=== PATIENT | female | born 1940 | race Caucasian/White ===

== ENCOUNTER 2016-03-14 08:13 | Inpatient (IN) | payer OTHER ==
[2016-03-14] VITALS (8 sets, daily range): BP systolic 103–180; BP diastolic 61–86; PULSE 60–78; TEMP 36.4–36.6; O2SAT 96–98; Ht 152.4 cm; Wt 46.6 kg
[~2016-03-14] VITALS: Ht 152.4 cm; Wt 46.6 kg
[~2016-03-14 08:13] MED LIST: ASPI81TA57 PO; CHOL100027 PO; CLOP1TAB15 PO; DILT-113 PO; ESZO1TAB16 PO; ISOS30TA3 PO; NTRGSL/4 UT; PRAV20TA PO; RAMI5CAP PO
[2016-03-14] MEDS ORDERED: ASPI81TA28 PO (08:26)
[2016-03-14] MEDS ORDERED: ALBUT/IPRATROP 3MG/0.5MG NEB 3 ML VIAL INH STA (08:40)
[2016-03-14 09:06] LABS: VEN BLD GAS O2 SATURATION 72.7 %; VEN BLOOD GAS BASE EXCESS 3.6 mmol/L
[2016-03-14 09:14] LABS: BASO % 0.1 %; BASO ABS # 0.01 K/uL (0-0.2); COMPLETE YES; EOS % 0.1 %; IG% 0.7 %; LYMPH % 16.3 %; LYMPH ABS # 2.07 K/uL (1.2-3.4); MEAN CELL VOLUME 89.9 fL (80-100); MEAN CORPUSCULAR HGB CONC 33.4 g/dl (32-36); MEAN PLATELET VOLUME 10.4 fL (7.4-10.4); MONO % 6.8 %; PLATELET COUNT 321 K/uL (130-400); RED BLOOD COUNT 4.56 M/uL (4.2-5.4); WHITE BLOOD COUNT 12.69 K/uL (4.8-10.8)
[2016-03-14 09:28] LABS: PARTIAL THROMBOPLASTIN RATIO 0.9; PROTHROMBIN TIME (PATIENT) 10.3 SECONDS (9.0-12.0)
[2016-03-14] MEDS ORDERED: LORAZEPAM 2 MG/ML 1 ML VIAL IV STA (09:28)
[2016-03-14 09:35] LABS: BUN/CREATININE RATIO 33.7 (10-20); CALCIUM 8.7 mg/dl (8.5-10.1); CREATININE 0.86 mg/dl (0.60-1.20); POTASSIUM 3.6 mmol/L (3.5-5.1)
[2016-03-14] MEDS ORDERED: OPTIRAY 320 IV PRN (09:45)
[2016-03-14 09:47] LABS: ALB/GLOB RATIO 0.7 (0.9-2)
[2016-03-14 10:59] LABS: URINE APPEARANCE CLEAR (CLEAR); URINE BILIRUBIN NEG (NEG); URINE COLOR YELLOW; URINE NITRITE NEG (NEG); URINE PH 7.5 (4.5-7.5); URINE SPECIFIC GRAVITY 1.009 (1.000-1.030); UROBILINOGEN NEG (NEG)
[2016-03-14] MEDS ORDERED: SYMIN160 INH (10:59)
[2016-03-14] MEDS ORDERED: CARV12.52 PO (10:59)
[2016-03-14] MEDS ORDERED: ATOR10TA88 PO (10:59)
[2016-03-14] MEDS ORDERED: SPIR25TA PO (10:59)
[2016-03-14] MEDS ORDERED: PANT40TA PO (10:59)
[2016-03-14 11:08] LABS: MANUAL MICROSCOPIC REQUIRED? NO; REVIEW REQ? NO; SULFASALICYLIC ACID POS (NEG)
--- NOTE | 2016-03-14 11:31 | DIAGNOSTIC IMAGING REPORT ---
HEAD CT NONCONTRAST CT DOSE: HISTORY: Dizziness. TECHNIQUE: Multiaxial CT images of the head were performed without the use of intravenous contrast. Automated exposure control was utilized for this study. Comparison: None. Findings: The paranasal sinuses and mastoid air cells are clear. The calvarium and skull base are intact. There is no mass, hematoma, midline shift, acute infarct. White matter hypodensity is nonspecific but suggestive of microvascular ischemic change. The ventricles and sulci are within normal limits for age. Old infarct within the left basal ganglia. Impression: No acute intracranial abnormality. Old left basal ganglia infarct. Electronically signed by: Rodney Rankin M.D. 03/14/2016 11:29 AM Dictated Date/Time: 03/14/2016 11:24 AM
--- NOTE | 2016-03-14 11:34 | DIAGNOSTIC IMAGING REPORT ---
CHEST AND ABDOMEN 2 VIEWS HISTORY: Short of breath. Generalized abdominal pain. COMPARISON: Chest 06/10/2012. FINDINGS: The heart is borderline enlarged. There is diffuse interstitial and vascular thickening consistent with mild pulmonary edema. No pleural effusions. No pneumothorax. Contrast within the renal collecting systems and bladder due to the recent CT examination. No pneumoperitoneum. No pneumatosis. Surgical clips within the right side of the abdomen. Vascular calcifications are noted. There is a right common iliac artery stent. The bowel gas pattern is unremarkable. No evidence for bowel obstruction. Punctate calcification within the right deep pelvis favors a phlebolith. There is a small focal airspace opacity within the right upper lobe. IMPRESSION: 1. Progression of the interstitial thickening consistent with mild pulmonary edema. 2. Unremarkable bowel gas pattern. No evidence for bowel obstruction. 3. Small focal airspace opacity within the right upper lobe. This could represent a component of the pulmonary edema or developing pneumonia. Recommend follow-up to complete resolution. Electronically signed by: Rodney Rankin M.D. 03/14/2016 11:32 AM Dictated Date/Time: 03/14/2016 11:30 AM
--- NOTE | 2016-03-14 11:46 | DIAGNOSTIC IMAGING REPORT ---
CHEST CTA for PULMONARY ARTERIES CT DOSE: 757.31 mGy.cm HISTORY: Atypical chest pain. Short of breath. TECHNIQUE: Multiaxial CT images of the chest were performed following the intravenous administration of contrast to evaluate the pulmonary arteries. Maximal intensity projection images were also obtained. COMPARISON STUDY: Chest and abdominal series 03/14/2016. FINDINGS: There is a partially visualized 4 cm infrarenal abdominal aortic aneurysm. No evidence for dissection within the thoracic aorta. Concentric hypertrophy of the left ventricle with mild cardiomegaly. There are trace bilateral pleural effusions. Retrograde flow of contrast into the hepatic veins. Mild fullness within the right left renal collecting system without bertha hydronephrosis. Cholecystectomy. The visualized liver, spleen, and adrenal glands are unremarkable. No hilar lymphadenopathy. A single enlarged right peritracheal lymph node measuring 1.4 cm. Mild diffuse body wall edema. Trace mucoid material within the mainstem bronchus. No pneumothorax. Mild emphysema. Interlobular septal thickening and peribronchial thickening. This favors mild interstitial pulmonary edema. Faint groundglass densities at the lung bases. Focal consolidation seen within the right upper lobe posteriorly which measures 2 cm. There is also a focal nodular component medial to this surrounding a pulmonary artery. This measures 1.5 x 0.9 cm seen on image 92. Small subpleural nodule along the right major fissure. There is a 1 cm irregular density within the right upper lobe anteriorly on image 105. Small focal area of consolidation within the lingula posteriorly abutting the major fissure on image 70. No evidence for pulmonary embolus. IMPRESSION: 1. No evidence for pulmonary embolus. 2. Diffuse interstitial thickening, mild cardiomegaly, and trace bilateral pleural effusions. This is consistent with mild interstitial pulmonary edema. 3. A 2 cm focal airspace opacity within the right upper lobe. Medial to this airspace opacity there is a 1.5 x 0.9 cm nodular area of thickening which surrounds a patent pulmonary artery. These are nonspecific but may represent a focal pneumonia or component of the pulmonary edema. However, one to [address] follow is recommended to exclude the possibility of a pulmonary neoplasm. 4. Additional groundglass densities at the lung bases favor component of the pulmonary edema. 5. Partially visualized 4 cm infrarenal abdominal aortic aneurysm. 6. A 1 cm irregular density within the right lung apex anteriorly. This may represent scarring. However, this also bears watching on future examinations. 7. Additional findings described above.. Electronically signed by: Rodney Rankin M.D. 03/14/2016 11:45 AM Dictated Date/Time: 03/14/2016 11:33 AM
[2016-03-14] MEDS ORDERED: HydrALAZINE HCL 20 MG/ML VIAL IV. STA (12:24)
[2016-03-14] MEDS ORDERED: FURO20TA PO (12:43)
[2016-03-14] MEDS ORDERED: MAGNESIUM HYDROXIDE SUSP 30 ML UDC PO PRN (12:45)
[2016-03-14] MEDS ORDERED: NITROGLYCERIN 0.4 MG SL PER TAB CHARGE SL PRN (12:45)
[2016-03-14] MEDS ORDERED: ONDANSETRON INJ 2 MG/ML 2 ML VIAL IV PRN (12:45)
[2016-03-14] MEDS ORDERED: ACETAMINOPHEN 325 MG TAB PO PRN (12:45)
[2016-03-14] MEDS ORDERED: ALUMINUM/MAGNESIUM/SIMETH (MAALOX MAX) 30 ML UDC PO PRN (12:45)
[2016-03-14] MEDS ORDERED: NITROGLYCERIN 0.4 MG SL PER TAB CHARGE UT SCH (12:45)
[2016-03-14] MEDS ORDERED: FUROSEMIDE 40 MG/4 ML VIAL IV STA (13:13)
--- NOTE | 2016-03-14 13:15 | History and Physical ---
History & Physical Date & Time of Service: Mar 14, 2016 at 12:55 Chief Complaint: SOB Primary Care Physician: Neftaly Cain M.D. History of Present Illness Source: patient, family, hospital records Patient seen and examined. 75 year old female with PMHx of HTN, CAD, PVP, H/O CVA and tobacco abuse presents to the ED complaining of SOB since last night. Patient reports she has had a URI for about 2 weeks, she has been treated with a Zpak, prednisone and nebulizer and thought she was getting better but last night she felt SOB even at rest. She reports associated cough with thick white sputum production. She reports PND and states she has been sleeping with an extra pillow. She also states she has had some diarrhea about 2 episodes per day. She states she has had urinary frequency for about a year despite stopping her Lasix. She denies fever, chills, chest pain, palpitations, nausea, vomiting , dysuria, calf pain and edema. She reports she hasn't been eating well for the past year. She reports she has had weight loss over the past year. She reports she is still smoking at least a half a pack a day. In the ED patient was HTN with SBP >200, she had not taken her morning meds, she required 4L oxygen, CT chest was negative for PE, but showed possible PNA and lung nodule. LFTs are elevated. Troponin is mildly elevated. BNP is 8K. She received Duonebs and Ativan. She is resting comfortably. She will be admitted for further workup and treatment. Past Medical/Surgical History Medical Problems: (1) AAA (abdominal aortic aneurysm) Status: Chronic (2) CAD (coronary artery disease) Status: Chronic (3) CVA (cerebral vascular accident) Status: Chronic (4) HLD (hyperlipidemia) Status: Chronic (5) Hypertension Status: Chronic (6) PVD (peripheral vascular disease) Status: Chronic (7) Tobacco abuse Status: Chronic Surgical Problems: (1) H/O: hysterectomy Status: Chronic (2) History of appendectomy Status: Chronic (3) History of cholecystectomy Status: Chronic Social History Smoking Status: Current Every Day Smoker Alcohol Use: socially Marital Status: in relationship Housing status: lives with family Occupational Status: retired Allergies Coded Allergies: Acetaminophen (Verified Allergy, Severe, SHORTNESS OF BREATH, 03/14/16) " FELT LIKE MY CHEST WAS BEING CRUSHED Cyclobenzaprine (Verified Allergy, Severe, ANAPHYLAXIS, 03/14/16) mY TONGUE SWELLS Morphine (Verified Allergy, Severe, ANAPHYLAXIS, 03/14/16) " I ALMOST " Oxycodone (Verified Allergy, Severe, SHORTNESS OF BREATH, 03/14/16) " FELT LIKE MY CHEST WAS BEING CRUSHED Uncoded Allergies: CODIENE (Allergy, Severe, ANAPHYLAXIS, 06/10/12) Home Medications Scheduled Aspirin (Aspirin Ec), 81 MG PO DAILY Atorvastatin (Lipitor), 10 MG PO DAILY Budesonide/Formoterol Fumarate (Symbicort 160/4.5 Inhaler ), 2 PUFFS INH BID Carvedilol (Coreg), 12.5 MG PO BID Cholecalciferol (Vitamin D 1000 Unit), 1,000 INTER.UNIT PO DAILY Doxycycline Hyclate (Doxycycline Hyclate), 100 MG PO BID Furosemide (Lasix), Unknown Dose PO DAILY Furosemide (Lasix), 20 MG PO WK Isosorbide Mononitrate Ext Rel (Imdur Ext Rel), 30 MG PO QAM Losartan Potassium (Losartan Potassium), 25 MG PO QAM Nitroglycerin (Nitrostat), 0.4 MG UT PRN Pantoprazole (Protonix), 40 MG PO DAILY Spironolactone (Aldactone), 25 MG PO DAILY [Boost Plus Vanilla], 1 CAN PO BID17 Review of Systems See above for pertinent positives & negatives. A total of 10 systems reviewed and were otherwise negative. Physical Exam Vital Signs Date Time Temp Pulse Resp B/P Pulse Ox O2 Delivery O2 Flow Rate FiO2 03/14/16 12:27 65 16 184/97 98 Room Air 03/14/16 12:25 64 03/14/16 09:49 76 14 206/106 97 Nasal Cannula 4.0 03/14/16 09:18 94 Nasal Cannula 4.0 03/14/16 08:24 84 03/14/16 08:22 94 Room Air 03/14/16 08:22 91 22 224/128 94 Room Air General Appearance: + pertinent finding (WD/WN 75 year old female lying in bed in NAD with family at bedside ) Head: normocephalic, atraumatic Eyes: PERRL, EOMI, sclerae normal ENT: hearing grossly normal, pharynx normal Neck: supple, no JVD Respiratory/Chest: chest non-tender, no respiratory distress, no accessory muscle use, + decreased breath sounds Cardiovascular: regular rate, rhythm, no edema, no gallop, no JVD, no murmur, normal peripheral pulses Abdomen/GI: normal bowel sounds, soft, + tenderness (LLQ), + mass (small flat hard area approximately 2 cm in size in LLQ, painful to palpation ) Back: normal inspection, no muscle spasm Extremities/Musculoskelatal: no calf tenderness, normal capillary refill, no pedal edema Neurologic/Psych: alert, oriented x 3, + pertinent finding (no motor or sensory deficits noted on gross exam ) Skin: normal color, warm/dry, no rash Lymphatic: no adenopathy Diagnostics Laboratory Results Results Past 24 Hours Test 03/14/16 08:50 03/14/16 09:10 03/14/16 09:45 Range/Units White Blood Count 12.69 4.8-10.8 K/uL Red Blood Count 4.56 4.2-5.4 M/uL Hemoglobin 13.7 12.0-16.0 g/dL Hematocrit 41.0 37-47 % Mean Corpuscular Volume 89.9 80-100 fL Mean Corpuscular Hemoglobin 30.0 25-34 pg Mean Corpuscular Hemoglobin Concent 33.4 32-36 g/dl Platelet Count 321 130-400 K/uL Mean Platelet Volume 10.4 7.4-10.4 fL Neutrophils (%) (Auto) 76.0 % Lymphocytes (%) (Auto) 16.3 % Monocytes (%) (Auto) 6.8 % Eosinophils (%) (Auto) 0.1 % Basophils (%) (Auto) 0.1 % Neutrophils # (Auto) 9.65 1.4-6.5 K/uL Lymphocytes # (Auto) 2.07 1.2-3.4 K/uL Monocytes # (Auto) 0.86 0.11-0.59 K/uL Eosinophils # (Auto) 0.01 0-0.5 K/uL Basophils # (Auto) 0.01 0-0.2 K/uL RDW Standard Deviation 42.1 36.4-46.3 fL RDW Coefficient of Variation 12.9 11.5-14.5 % Immature Granulocyte % (Auto) 0.7 % Immature Granulocyte # (Auto) 0.09 0.00-0.02 K/uL Prothrombin Time 10.3 9.0-12.0 SECONDS Prothromb Time International Ratio 1.0 0.9-1.1 Activated Partial Thromboplast Time 23.2 21.0-31.0 SECONDS Partial Thromboplastin Ratio 0.9 D-Dimer 4190 0-500 ug/L FEU Venous Blood pH 7.41 7.36-7.41 Venous Blood Partial Pressure CO2 46 38.0-50.0 mmHg Venous Blood Partial Pressure O2 39 mmHg Venous Blood HCO3 29 mmol/L Venous Blood Oxygen Saturation 72.7 % Venous Blood Base Excess 3.6 mmol/L Sodium Level 143 136-145 mmol/L Potassium Level 3.6 3.5-5.1 mmol/L Chloride Level 107 98-107 mmol/L Carbon Dioxide Level 26 21-32 mmol/L Anion Gap 10.0 3-11 mmol/L Blood Urea Nitrogen 29 7-18 mg/dl Creatinine 0.86 0.60-1.20 mg/dl Est Creatinine Clear Calc Drug Dose 41.8 ml/min Estimated GFR () 77.7 Estimated GFR (Non- 67.0 BUN/Creatinine Ratio 33.7 10-20 Random Glucose 86 70-99 mg/dl Calcium Level 8.7 8.5-10.1 mg/dl Total Bilirubin 0.2 0.2-1 mg/dl Aspartate Amino Transf (AST/SGOT) 130 15-37 U/L Alanine Aminotransferase (ALT/SGPT) 91 12-78 U/L Alkaline Phosphatase 172 45-117 U/L Troponin I 0.052 0-0.045 ng/ml Pro-B-Type Natriuretic Peptide 8757 0-900 pg/ml Total Protein 7.3 6.4-8.2 gm/dl Albumin 3.0 3.4-5.0 gm/dl Globulin 4.3 2.5-4.0 gm/dl Albumin/Globulin Ratio 0.7 0.9-2 Influenza Type A Antigen Neg for Influ A NEG Influenza Type B Antigen Neg for Influ B NEG Urine Color YELLOW Urine Appearance CLEAR CLEAR Urine pH 7.5 4.5-7.5 Urine Specific Enders 1.009 1.000-1.030 Urine Protein TRACE NEG Urine Glucose (UA) NEG NEG Urine Ketones NEG NEG Urine Occult Blood NEG NEG Urine Nitrite NEG NEG Urine Bilirubin NEG NEG Urine Urobilinogen NEG NEG Urine Leukocyte Esterase NEG NEG Urine WBC (Auto) 1-5 0-5 /hpf Urine RBC (Auto) 0-4 0-4 /hpf Urine Hyaline Casts (Auto) 0 0-5 /lpf Urine Epithelial Cells (Auto) 10-20 0-5 /lpf Urine Bacteria (Auto) NEG NEG Diagnostic Radiology CXR/KUB Per radiologist read: IMPRESSION: 1. Progression of the interstitial thickening consistent with mild pulmonary edema. 2. Unremarkable bowel gas pattern. No evidence for bowel obstruction. 3. Small focal airspace opacity within the right upper lobe. This could represent a component of the pulmonary edema or developing pneumonia. Recommend follow-up to complete resolution. CT HEAD Per radiologist read: Impression: No acute intracranial abnormality. Old left basal ganglia infarct. CTA CHEST Per radiologist read: IMPRESSION: 1. No evidence for pulmonary embolus. 2. Diffuse interstitial thickening, mild cardiomegaly, and trace bilateral pleural effusions. This is consistent with mild interstitial pulmonary edema. 3. A 2 cm focal airspace opacity within the right upper lobe. Medial to this airspace opacity there is a 1.5 x 0.9 cm nodular area of thickening which surrounds a patent pulmonary artery. These are nonspecific but may represent a focal pneumonia or component of the pulmonary edema. However, one to [address] follow is recommended to exclude the possibility of a pulmonary neoplasm. 4. Additional groundglass densities at the lung bases favor component of the pulmonary edema. 5. Partially visualized 4 cm infrarenal abdominal aortic aneurysm. 6. A 1 cm irregular density within the right lung apex anteriorly. This may represent scarring. However, this also bears watching on future examinations. 7. Additional findings described above.. EKG NSR 92 BPM, LBBB, QTc 487, no significant change when compared to OSH EKG Impression Assessment and Plan 75 year old female in town to visit family reports to the ED complaining of worsening SOB since last night SHORTNESS OF BREATH -Admit to tele -Differentia diagnosis to include, CHF, PNA, bronchitis, ACS -CTA negative for PE, shows possible consolidation -Empirically treat with Rocephin and Doxycycline for possible pneumonia -Scheduled nebs -For possible CHF - IV Lasix 40mg x 1 dose -Check Echo -Serial Kevin to r/o ACS -Cardiology consult placed ELEVATED TROPONIN -? troponin leak related to hypertensive urgency -serial Kevin, EKGs -monitor in tele ABDOMINAL PAIN/TRANSAMINITIS/WEIGHT LOSS -? cause -Check CT A/P -check Liver US -hepatitis panel pending -GI consult placed -repeat LFTs in AM LEUKOCYTOSIS -? cause URI versus PNA -check blood cultures -Abx as above -check CBC daily HYPERTENSIVE URGENCY -SBP >200, CT head negative - improved to the 180s after morning meds -? cause stress, infection, and other etiologies -Continue Spirolactone, Imdur, BB -add hydralazine prn -monitor in tele LUNG NODULE -incidental finding of CT chest -is current smoker with history of recent weight loss, decreased appetite -Pulmonology consult placed -will need repeat CT chest as outpatient AAA -4cm intrarenal AAA -US pending CAD -continue ASA, BB, Imdur -hold Statin for elevated LFTs -monitor in tele -serial Kevin PVD -s/p stent -continue Aspirin HLD -hold statin for elevated LFTs H/O CVA -continue ASA TOBACCO ABUSE -Cessation counseling given DVT PROPHYLAXIS: Heparin CODE STATUS: FULL CODE DISPO:In my clinical judgment this beneficiary meets acute admission criteria, established by [facility], that includes being hospitalized through two midnights. Patient seen in collaboration with Dr. Gibbs ATTENDING ADDENDUM : pt seen and examined , in agreement with above H&P 75 yo F with past medical hx of HTN , CAD , hx of CVA , hx GI bleed , ongoing tobacco abuse presented with ED due worsening of SOB pt is out of town , visiting daughter in status college had recent URI treated with Z -pack , INH , prednisone taper developed progressive SOB , SANDOVAL , orthopnea found to be in Hypertensive urgency in ED ; SBP > 200 CT chest negative for PE , possible pneumonia /lung nodule P/E: gen ; anxious , no apparent distress HEENT : sclera non icteric , PERRLA/EOMI HT: regular S1/S2 Lungs: diminished , + rales at base abdomen; soft, left lower quad tenderness Ext ; trace bilat lower ext edema Neuro: no focal deficit A/P : SOB: possible decompensated CHF -diastolic dysfunction ? ordered for ECHO eval Lasix X1 dose empiric abx for pneumonia pulmonology consulted for lung nodule smoking cessation counselling provided HYPERTENSIVE URGENCY : ordered for IV Hydralazine resume out pt meds ( pt missed her morning meds ) ECHO ordered monitor in tele Cardiology eval requested VTE Prophylaxis VTE Risk Assessment Done? Y/N: Yes Risk Level: Moderate
[2016-03-14] MEDS ORDERED: POLYETHYLENE (MIRALAX) 17 GM PACK PO PRN (14:00)
[2016-03-14] MEDS ORDERED: HydrALAZINE HCL 20 MG/ML VIAL IV. PRN (14:00)
--- NOTE | 2016-03-14 14:58 | DIAGNOSTIC IMAGING REPORT ---
ABDOMEN AND PELVIS CT WITHOUT CONTRAST CT DOSE: 228.63 mGy.cm HISTORY: Pain abdominal pain , wt loss TECHNIQUE: Multiaxial CT images of the abdomen and pelvis were performed without contrast. COMPARISON STUDY: None. FINDINGS: Mild bibasilar atelectasis. Trace pleural fluid both lung bases. Aneurysmal dilatation of abdominal aorta with partial intraluminal thrombus formation. Maximum dimension 3.8 cm. Small chronic calcified dissection inferior aspect abdominal aorta. Unremarkable liver spleen and pancreas. Multiple bilateral renal calcifications as well as vascular calcifications. Nonobstructive bowel pattern. Normal appendix. No free fluid within the cul-de-sac cul-de-sac. Bladder is midline. Considerable atelectatic change abdominal arterial vasculature. Degenerative changes lumbar spine. Increased trabecular pattern right hemipelvis and right iliac wing raising the possibility of patchy joint change. No evidence for an acute compression deformity. IMPRESSION: 1. 3.8 cm partially calcified aneurysm of abdominal aorta. 2. Nonobstructive bowel pattern. 3. Bilateral nonobstructing renal calcifications. 4. Small bibasilar parenchymal infiltrative and/or atelectatic changes with minimal basilar pleural effusion Electronically signed by: Jesus Palencia M.D. 03/14/2016 2:57 PM Dictated Date/Time: 03/14/2016 2:51 PM
[2016-03-14] MEDS ORDERED: LEVALBUTEROL/IPRATROPIUM NEB INH SCH (15:00)
--- NOTE | 2016-03-14 15:09 | EMERGENCY ROOM VISIT NOTE ---
History Report prepared by Edis: Brian Johns Under the Supervision of: Dr. Gene Abrams D.O. First contact with patient: 08:29 Chief Complaint: RESPIRATORY DISTRESS Stated Complaint: SOB History of Present Illness The patient is a 75 year old female who presents to the Emergency Room with complaints of constant shortness of breath starting last night. The patient additionally complains of nausea, coughing up white phlegm, rhinorrhea, and improving abdominal pain. The patient denies any fevers, sore throat, congestions or ear pain. The patient states that five days ago she was in the hospital for similar symptoms. The patient additionally noted that she took DayQuil which she is not supposed to do. The patient denies any COPD, asthma, and she states that she is a former smoker. She states that her last bowel movement was yesterday. She states that she has a history of hypertension and a surgical history of an appendectomy, cholecystectomy, and a hysterectomy. She denies being on oxygen at home. Pt denies headache, change in vision, chest pain , vomiting, diarrhea, pain with urination, and melena. She missed a history of hypertension and probably elevated cholesterol. She also admits to previous cath with an occlusion and collaterals present. Source of History: patient Onset: last night Position: other (global) Quality: other (shortness of breath) Timing: constant Associated Symptoms: + abdominal pain, + cough, + nausea, No fevers, No headache Review of Systems See HPI for pertinent positives & negatives. A total of 10 systems reviewed and were otherwise negative. Past Medical & Surgical Medical Problems: (1) Hypertension (2) SOB (shortness of breath) Surgical Problems: (1) H/O: hysterectomy (2) History of appendectomy (3) Hx of cholecystectomy Social History Smoking Status: Current Every Day Smoker Alcohol Use: occasionally Marital Status: in relationship Occupation Status: retired Current/Historical Medications Scheduled Aspirin (Aspirin Ec), 81 MG PO DAILY Atorvastatin (Lipitor), 10 MG PO DAILY Budesonide/Formoterol Fumarate (Symbicort 160/4.5 Inhaler ), 2 PUFFS INH BID Carvedilol (Coreg), 12.5 MG PO BID Cholecalciferol (Vitamin D 1000 Unit), 1,000 INTER.UNIT PO DAILY Furosemide (Lasix), Unknown Dose PO DAILY Isosorbide Mononitrate Ext Rel (Imdur Ext Rel), 30 MG PO QAM Nitroglycerin (Nitrostat), 0.4 MG UT PRN Pantoprazole (Protonix), 40 MG PO DAILY Spironolactone (Aldactone), 25 MG PO DAILY Allergies Coded Allergies: Acetaminophen (Verified Allergy, Severe, SHORTNESS OF BREATH, 03/14/16) " FELT LIKE MY CHEST WAS BEING CRUSHED Cyclobenzaprine (Verified Allergy, Severe, ANAPHYLAXIS, 03/14/16) mY TONGUE SWELLS Morphine (Verified Allergy, Severe, ANAPHYLAXIS, 03/14/16) " I ALMOST " Oxycodone (Verified Allergy, Severe, SHORTNESS OF BREATH, 03/14/16) " FELT LIKE MY CHEST WAS BEING CRUSHED Uncoded Allergies: CODIENE (Allergy, Severe, ANAPHYLAXIS, 06/10/12) Physical Exam Vital Signs Date Time Temp Pulse Resp B/P Pulse Ox O2 Delivery O2 Flow Rate FiO2 03/14/16 13:30 98 Nasal Cannula 2.0 03/14/16 13:30 69 14 184/100 98 Room Air 03/14/16 12:27 65 16 184/97 98 Room Air 03/14/16 12:25 64 03/14/16 09:49 76 14 206/106 97 Nasal Cannula 4.0 03/14/16 09:18 94 Nasal Cannula 4.0 03/14/16 08:24 84 03/14/16 08:22 94 Room Air 03/14/16 08:22 91 22 224/128 94 Room Air Physical Exam GENERAL: sitting up in bed, anxious, disheveled, non-toxic EYE EXAM: normal conjunctiva, PERRL and EOM's grossly intact OROPHARYNX: no exudate, no erythema, lips, buccal mucosa, and tongue normal and mucous membranes are moist NECK: No JVD. supple, no nuchal rigidity, no adenopathy, non-tender LUNGS: Scant wheezing bilaterally. Normal chest wall mechanics HEART: no murmurs, S1 normal and S2 normal ABDOMEN: abdomen soft, non-tender, normo-active bowel sounds, no masses, no rebound or guarding. BACK: Back is symmetrical on inspection and there is no deformity, no midline tenderness, no CVA tenderness. SKIN: no rashes and no bruising UPPER EXTREMITIES: upper extremities are grossly normal. LOWER EXTREMITIES: Calves equal bilaterally. No pitting edema. NEURO EXAM: Normal sensorium, cranial nerves II-XII grossly intact, normal speech, no gross weakness of arms, no gross weakness of legs. No drift. Finger to nose intact. Medical Decision & Procedures ER Provider Diagnostic Interpretation: Xray results per the radiologist and my interpretation. Other results have been interpreted by the radiologist and reviewed by me. CHEST AND ABDOMEN 2 VIEWS HISTORY: Short of breath. Generalized abdominal pain. COMPARISON: Chest 06/10/2012. FINDINGS: The heart is borderline enlarged. There is diffuse interstitial and vascular thickening consistent with mild pulmonary edema. No pleural effusions. No pneumothorax. Contrast within the renal collecting systems and bladder due to the recent CT examination. No pneumoperitoneum. No pneumatosis. Surgical clips within the right side of the abdomen. Vascular calcifications are noted. There is a right common iliac artery stent. The bowel gas pattern is unremarkable. No evidence for bowel obstruction. Punctate calcification within the right deep pelvis favors a phlebolith. There is a small focal airspace opacity within the right upper lobe. IMPRESSION: 1. Progression of the interstitial thickening consistent with mild pulmonary edema. 2. Unremarkable bowel gas pattern. No evidence for bowel obstruction. 3. Small focal airspace opacity within the right upper lobe. This could represent a component of the pulmonary edema or developing pneumonia. Recommend follow-up to complete resolution. Electronically signed by: Rodney Rankin M.D. 03/14/2016 11:32 AM Dictated Date/Time: 03/14/2016 11:[address] CT DOSE: HISTORY: Dizziness. TECHNIQUE: Multiaxial CT images of the head were performed without the use of intravenous contrast. Automated exposure control was utilized for this study. Comparison: None. Findings: The paranasal sinuses and mastoid air cells are clear. The calvarium and skull base are intact. There is no mass, hematoma, midline shift, acute infarct. White matter hypodensity is nonspecific but suggestive of microvascular ischemic change. The ventricles and sulci are within normal limits for age. Old infarct within the left basal ganglia. Impression: No acute intracranial abnormality. Old left basal ganglia infarct. Electronically signed by: Rodney Rankin M.D. 03/14/2016 11:29 AM Dictated Date/Time: 03/14/2016 11:24 AM CHEST CTA for PULMONARY ARTERIES CT DOSE: 757.31 mGy.cm HISTORY: Atypical chest pain. Short of breath. TECHNIQUE: Multiaxial CT images of the chest were performed following the intravenous administration of contrast to evaluate the pulmonary arteries. Maximal intensity projection images were also obtained. COMPARISON STUDY: Chest and abdominal series 03/14/2016. FINDINGS: There is a partially visualized 4 cm infrarenal abdominal aortic aneurysm. No evidence for dissection within the thoracic aorta. Concentric hypertrophy of the left ventricle with mild cardiomegaly. There are trace bilateral pleural effusions. Retrograde flow of contrast into the hepatic veins. Mild fullness within the right left renal collecting system without bertha hydronephrosis. Cholecystectomy. The visualized liver, spleen, and adrenal glands are unremarkable. No hilar lymphadenopathy. A single enlarged right peritracheal lymph node measuring 1.4 cm. Mild diffuse body wall edema. Trace mucoid material within the mainstem bronchus. No pneumothorax. Mild emphysema. Interlobular septal thickening and peribronchial thickening. This favors mild interstitial pulmonary edema. Faint groundglass densities at the lung bases. Focal consolidation seen within the right upper lobe posteriorly which measures 2 cm. There is also a focal nodular component medial to this surrounding a pulmonary artery. This measures 1.5 x 0.9 cm seen on image 92. Small subpleural nodule along the right major fissure. There is a 1 cm irregular density within the right upper lobe anteriorly on image 105. Small focal area of consolidation within the lingula posteriorly abutting the major fissure on image 70. No evidence for pulmonary embolus. IMPRESSION: 1. No evidence for pulmonary embolus. 2. Diffuse interstitial thickening, mild cardiomegaly, and trace bilateral pleural effusions. This is consistent with mild interstitial pulmonary edema. 3. A 2 cm focal airspace opacity within the right upper lobe. Medial to this airspace opacity there is a 1.5 x 0.9 cm nodular area of thickening which surrounds a patent pulmonary artery. These are nonspecific but may represent a focal pneumonia or component of the pulmonary edema. However, one to [address] follow is recommended to exclude the possibility of a pulmonary neoplasm. 4. Additional groundglass densities at the lung bases favor component of the pulmonary edema. 5. Partially visualized 4 cm infrarenal abdominal aortic aneurysm. 6. A 1 cm irregular density within the right lung apex anteriorly. This may represent scarring. However, this also bears watching on future examinations. 7. Additional findings described above.. Electronically signed by: Rodney Rankin M.D. 03/14/2016 11:45 AM Dictated Date/Time: 03/14/2016 11:33 AM Laboratory Results 03/14/16 08:50 Red Blood Count 4.56, Mean Corpuscular Volume 89.9, Mean Corpuscular Hemoglobin 30.0, Mean Corpuscular Hemoglobin Concent 33.4, Mean Platelet Volume 10.4, Neutrophils (%) (Auto) 76.0, Lymphocytes (%) (Auto) 16.3, Monocytes (%) (Auto) 6.8, Eosinophils (%) (Auto) 0.1, Basophils (%) (Auto) 0.1, Neutrophils # (Auto) 9.65, Lymphocytes # (Auto) 2.07, Monocytes # (Auto) 0.86, Eosinophils # (Auto) 0.01, Basophils # (Auto) 0.01 03/14/16 08:50 Test 03/14/16 08:50 03/14/16 09:10 03/14/16 09:45 White Blood Count 12.69 K/uL (4.8-10.8) Red Blood Count 4.56 M/uL (4.2-5.4) Hemoglobin 13.7 g/dL (12.0-16.0) Hematocrit 41.0 % (37-47) Mean Corpuscular Volume 89.9 fL (80-100) Mean Corpuscular Hemoglobin 30.0 pg (25-34) Mean Corpuscular Hemoglobin Concent 33.4 g/dl (32-36) Platelet Count 321 K/uL (130-400) Mean Platelet Volume 10.4 fL (7.4-10.4) Neutrophils (%) (Auto) 76.0 % Lymphocytes (%) (Auto) 16.3 % Monocytes (%) (Auto) 6.8 % Eosinophils (%) (Auto) 0.1 % Basophils (%) (Auto) 0.1 % Neutrophils # (Auto) 9.65 K/uL (1.4-6.5) Lymphocytes # (Auto) 2.07 K/uL (1.2-3.4) Monocytes # (Auto) 0.86 K/uL (0.11-0.59) Eosinophils # (Auto) 0.01 K/uL (0-0.5) Basophils # (Auto) 0.01 K/uL (0-0.2) RDW Standard Deviation 42.1 fL (36.4-46.3) RDW Coefficient of Variation 12.9 % (11.5-14.5) Immature Granulocyte % (Auto) 0.7 % Immature Granulocyte # (Auto) 0.09 K/uL (0.00-0.02) Prothrombin Time 10.3 SECONDS (9.0-12.0) Prothromb Time International Ratio 1.0 (0.9-1.1) Activated Partial Thromboplast Time 23.2 SECONDS (21.0-31.0) Partial Thromboplastin Ratio 0.9 D-Dimer 4190 ug/L FEU (0-500) Venous Blood pH 7.41 (7.36-7.41) Venous Blood Partial Pressure CO2 46 mmHg (38.0-50.0) Venous Blood Partial Pressure O2 39 mmHg Venous Blood HCO3 29 mmol/L Venous Blood Oxygen Saturation 72.7 % Venous Blood Base Excess 3.6 mmol/L Anion Gap 10.0 mmol/L (3-11) Est Creatinine Clear Calc Drug Dose 41.8 ml/min Estimated GFR () 77.7 Estimated GFR (Non- 67.0 BUN/Creatinine Ratio 33.7 (10-20) Calcium Level 8.7 mg/dl (8.5-10.1) Total Bilirubin 0.2 mg/dl (0.2-1) Aspartate Amino Transf (AST/SGOT) 130 U/L (15-37) Alanine Aminotransferase (ALT/SGPT) 91 U/L (12-78) Alkaline Phosphatase 172 U/L (45-117) Troponin I 0.052 ng/ml (0-0.045) Pro-B-Type Natriuretic Peptide 8757 pg/ml (0-900) Total Protein 7.3 gm/dl (6.4-8.2) Albumin 3.0 gm/dl (3.4-5.0) Globulin 4.3 gm/dl (2.5-4.0) Albumin/Globulin Ratio 0.7 (0.9-2) Thyroid Stimulating Hormone (TSH) 3.030 uIu/ml (0.300-4.500) Influenza Type A Antigen Neg for Influ A (NEG) Influenza Type B Antigen Neg for Influ B (NEG) Urine Color YELLOW Urine Appearance CLEAR (CLEAR) Urine pH 7.5 (4.5-7.5) Urine Specific Mcintosh 1.009 (1.000-1.030) Urine Protein TRACE (NEG) Urine Glucose (UA) NEG (NEG) Urine Ketones NEG (NEG) Urine Occult Blood NEG (NEG) Urine Nitrite NEG (NEG) Urine Bilirubin NEG (NEG) Urine Urobilinogen NEG (NEG) Urine Leukocyte Esterase NEG (NEG) Urine WBC (Auto) 1-5 /hpf (0-5) Urine RBC (Auto) 0-4 /hpf (0-4) Urine Hyaline Casts (Auto) 0 /lpf (0-5) Urine Epithelial Cells (Auto) 10-20 /lpf (0-5) Urine Bacteria (Auto) NEG (NEG) Laboratory results per my review. Medications Administered Medications (Trade) Dose Ordered Sig/Felicita Route Start Time Stop Time Status Last Admin Dose Admin Albuterol/ Ipratropium (Duoneb) 3 ml NOW STAT INH 03/14/16 08:40 03/14/16 08:42 DC 03/14/16 09:38 3 ML Lorazepam (Ativan Inj) 0.5 mg NOW STAT IV 03/14/16 09:28 03/14/16 09:29 DC 03/14/16 09:37 0.5 MG Hydralazine HCl (HydrALAZINE INJ) 10 mg NOW STAT IV. 03/14/16 12:24 03/14/16 12:40 DC 03/14/16 14:18 10 MG Furosemide (Lasix Inj) 40 mg NOW STAT IV 03/14/16 13:13 03/14/16 13:27 DC 03/14/16 14:18 40 MG ECG Indication: SOB/dyspnea Rate (beats per minute): 92 Rhythm: sinus rhythm Findings: LBBB, left axis deviation, other (Poor baseline) Comparison ECG Date: 04/2015 Change: no significant change ED Course ED COURSE: Vital signs were reviewed and showed hypertension The patients medical record was reviewed The above diagnostic studies were performed and reviewed. ED treatments and interventions as stated above. 0829: The patient was evaluated in room B3. A complete history and physical examination was performed. 0840: DuoNeb 3ml INH 0928: Ativan Inj .5mg IV 0956: I reevaluated the patient, and she states that she did not take her medications this morning. 1018: I updated the patient on the results. 1212: I discussed the patient's case with Dr. Gibbs. She is going to evaluate the patient for further treatment 1220: Upon reevaluation, the patient is resting.I discussed my findings with the patient and she understands and agrees with the treatment plan. Based on the patients age, coexisting illnesses, exam and lab findings the decision to treat as an inpatient was made. The patient remained stable while under my care. The patient will be evaluated for further management. Medical Decision Differential diagnoses includes but is not limited to pneumonia, bronchitis, COPD/Asthma exacerbation, pneumothorax, pulmonary embolism, congestive heart failure, acute coronary syndrome Patient is a 75-year-old female with diabetes, hypertension and CAD that presents the ER for shortness of breath. Family and patient notes that this comes and goes in waves. They note that it is worse when she becomes worked up. No history of asthma or COPD patient was smoker and likely has COPD. Breath sounds were coarse bilateral. D-dimer was elevated and consequently CT PE was performed which showed small pulmonary nodules. Troponin came back and was elevated 0.05. Initially upon presentation she was extremely anxious and she was given a small dose of Ativan. She also notes that she did not take her home medications consequently she requested and did take them. Systolic blood pressures improved from the 240s at that time down to 170. I did not give her anything additionally IV as this was too a 25% drop her blood pressure. Patient answers shortness of breath resolved at that time. She had previous a taken aspirin prior to arrival. EKG showed left bundle branch block which is consistent with her previous EKGs from April 2015 which were obtained from outside hospital. Obstruction series was unremarkable. She has no abdominal pain and consequently this was not pursued any further. Patient was updated at bedside along with family and she is admitted to internal medicine. Uncertain of the true cause of her troponin although its likely secondary to her hypertension. VBG was unremarkable. Patient was admitted for further workup. Consults Time Called: 1210 Consulting Physician: Dr. Gibbs Returned Call: 1212 I discussed the patient's case with Dr. Gibbs. She is going to evaluate the patient for further treatment Impression Primary Impression: Dyspnea Additional Impressions: Elevated troponin Lung mass Hypertensive urgency Scribe Attestation The scribe's documentation has been prepared under my direction and personally reviewed by me in its entirety. I confirm that the note above accurately reflects all work, treatment, procedures, and medical decision making performed by me. Departure Information Dispostion Being Evaluated By Hospitalist Referrals No Doctor, Assigned (PCP) Patient Instructions Asthma - [facility], COPD - [facility], Croup - [facility], [facility] Problem Qualifiers Primary Impression: Dyspnea Dyspnea type: shortness of breath Qualified Codes: R06.02 - Shortness of breath
--- NOTE | 2016-03-14 15:37 | Progress Note ---
Progress Note ATTENDING NOTE : pt seen and examined, care co-ordniated with Kaitlyn PRIEST labs , images reviewed 75 yo F with past medical hx of HTN , CAD , hx of CVA , hx GI bleed , ongoing tobacco abuse presented with ED due worsening of SOB pt is out of town , visiting daughter in status college had recent URI treated with Z -pack , INH , prednisone taper developed progressive SOB , SANDOVAL , orthopnea found to be in Hypertensive urgency in ED ; SBP > 200 CT chest negative for PE , possible pneumonia /lung nodule P/E: gen ; anxious , no apparent distress HEENT : sclera non icteric , PERRLA/EOMI HT: regular S1/S2 Lungs: diminished , + rales at base abdomen; soft, left lower quad tenderness Ext ; trace bilat lower ext edema Neuro: no focal deficit A/P : SOB: possible decompensated CHF -diastolic dysfunction ? ordered for ECHO eval Lasix X1 dose empiric abx for pneumonia pulmonology consulted for lung nodule smoking cessation counselling provided HYPERTENSIVE URGENCY : ordered for IV Hydralazine resume out pt meds ( pt missed her morning meds ) ECHO ordered monitor in tele Cardiology eval requested
[2016-03-14] MEDS: CEFTRIAXONE SOD INJ 1 GM in DEXTROSE 5% ADD-VANTAGE 50ML 50 ML IV SCH (15:47)
[2016-03-14] MEDS: FLUTICASONE PROPIONATE NA SPR 16 GM BTL SCH (16:08)
[2016-03-14] MEDS: ISOSORBIDE MONONITRATE 30 MG TABCR PO SCH (16:09)
[2016-03-14 18:58] LABS: CKMB/CK RATIO 5.8 (0-3.0)
[2016-03-14] MEDS: LEVALBUTEROL 1.25MG/0.5ML NEB INH SCH (20:02)
[2016-03-14] MEDS: IPRATROPIUM BROMIDE NEB SOLN 0.02% 2.5 ML VIAL INH SCH (20:02)
[2016-03-14] MEDS: DOXYCYCLINE HYCLATE 100 MG CAP PO SCH (20:41)
[2016-03-14] MEDS: LORAZEPAM 1 MG TAB PO PRN (20:41)
[2016-03-14] MEDS: BUDESONIDE/FORMOTEROL FUMARATE 160/4.5 60 PUFFS/INHALER INH SCH (20:42)
[2016-03-14] MEDS: CARVEDILOL 12.5 MG TAB PO SCH (20:42)
--- NOTE | 2016-03-14 21:07 | Progress Note ---
Progress Note ATTENDING NOTE: mild elevation of troponin noted 0.05-> 0.18 pt denies of any chest pain , SOB has improved EKg unchanged form prior CT chest negative for PE ECHO /cardiology eval requested avoid full anticoagulation with IV heparin -pt has significant GI bleed hx
[2016-03-14] MEDS: HEPARIN SOD 5000 UNIT/0.5 ML CARP SQ SCH (21:41)
--- NOTE | 2016-03-14 21:42 | DIAGNOSTIC IMAGING REPORT ---
Limited abdominal ultrasound (LIVER) ABDOMEN LIMITED CLINICAL HISTORY: ELEVATED TRANSAMINASES abnormal liver enzymes/pancreatic enzymes TECHNIQUE: Ultrasound COMPARISON STUDY: CT abdomen and pelvis of the same date FINDINGS: Poor visualization of the pancreas. Aneurysm the abdominal aorta previously noted. Liver is uniform. Prior cholecystectomy. No evidence renal hydronephrosis. IMPRESSION: Aneurysm of the abdominal aorta appears a noted. Poor visualization of the pancreas. Otherwise negative study status post cholecystectomy. Electronically signed by: Jesus Palencia M.D. 03/14/2016 9:41 PM Dictated Date/Time: 03/14/2016 9:37 PM
--- NOTE | 2016-03-14 21:43 | DIAGNOSTIC IMAGING REPORT ---
Ultrasound abdominal aorta AORTIC ANEURYSM RETRO [place] CLINICAL HISTORY: 4 CM INFRARENAL AAA aneurysm TECHNIQUE: Ultrasound COMPARISON STUDY: CT abdomen and pelvis same date FINDINGS: 3.8 cm partially thrombosed aneurysm of the abdominal aorta. No evidence for dissection based on this exam. No abnormal perinephric fluid. IMPRESSION: 3.8 cm partially thrombosed aneurysm abdominal aorta. Similar appearances compared to the patient's prior CT study Electronically signed by: Jesus Palencia M.D. 03/14/2016 9:42 PM Dictated Date/Time: 03/14/2016 9:41 PM
[2016-03-15] VITALS (10 sets, daily range): BP systolic 136–184; BP diastolic 70–96; PULSE 67–87; TEMP 36.4–36.7; O2SAT 91–99
[2016-03-15] MEDS: IPRATROPIUM BROMIDE NEB SOLN 0.02% 2.5 ML VIAL INH SCH ×4 (02:13→19:41)
[2016-03-15] MEDS: LEVALBUTEROL 1.25MG/0.5ML NEB INH SCH ×4 (02:13→19:41)
[2016-03-15 03:39] LABS: CKMB/CK RATIO 4.8 (0-3.0)
[2016-03-15] MEDS: HEPARIN SOD 5000 UNIT/0.5 ML CARP SQ SCH ×3 (05:55→22:54)
[2016-03-15 06:19] LABS: HEMATOCRIT 42.8 % (37-47); MEAN CELL VOLUME 90.3 fL (80-100); MEAN CORPUSCULAR HEMOGLOBIN 29.7 pg (25-34); MEAN CORPUSCULAR HGB CONC 32.9 g/dl (32-36); MEAN PLATELET VOLUME 10.2 fL (7.4-10.4); PLATELET COUNT 296 K/uL (130-400); RED BLOOD COUNT 4.74 M/uL (4.2-5.4); WHITE BLOOD COUNT 8.54 K/uL (4.8-10.8)
[2016-03-15 06:24] LABS: ESTIMATED AVERAGE GLUCOSE 128 mg/dl; HA1C FLAG Normal (Normal)
[2016-03-15 06:46] LABS: GLUCOSE 82 mg/dl (70-99)
[2016-03-15 06:47] LABS: ALT/SGPT 58 U/L (12-78); BLOOD UREA NITROGEN 25 mg/dl (7-18); BUN/CREATININE RATIO 24.6 (10-20); CALCIUM 8.7 mg/dl (8.5-10.1); CARBON DIOXIDE 33 mmol/L (21-32); CHLORIDE 101 mmol/L (98-107); MAGNESIUM 2.2 mg/dl (1.8-2.4); POTASSIUM 3.5 mmol/L (3.5-5.1); SODIUM 143 mmol/L (136-145)
[2016-03-15 06:50] LABS: ALKALINE PHOSPHATASE 163 U/L (45-117); AST/SGOT 39 U/L (15-37); CHOLESTEROL 195 mg/dl (0-200); CHOLESTEROL/HDL RATIO 2.2; HDL CHOLESTEROL 88 mg/dl; LDL CHOLESTEROL CALCULATED 71 mg/dl; PHOSPHORUS 4.5 mg/dl (2.5-4.9); TRIGLYCERIDES 180 mg/dl (0-150); VERY LOW DENSITY LIPOPROT CALC 36 mg/dl
--- NOTE | 2016-03-15 08:59 | Pulmonary Consultation ---
History General Date of Service: Mar 15, 2016. Stated Complaint: Hypertension,Sob HPI The patient is a 75 year old female who presents to [facility] with complaints of Hypertension,Sob. The patient's primary care provider is Neftaly Cain M.D.. Admitted through the ED on 03/14/16 75 y/o female who presented to the ED with complaints of URI symptoms for 2 weeks with increased SOB/cough and increased white phlegm production starting the night prior to admission. She was treated 2 weeks prior with a Z-pack, prednisone and nebulizers as an outpatient and was noting improvement until the night prior to admission. She also notes a years worth of 30 pound unintentional weight loss with progressive fatigue and 3 months worth of sinusitis. In the last 3 months she has been treated 3-4 times with antibiotics with little resolution to no resolution of her sinusitis, seen cardiology with echocardiogram/and they initially thought to require defibrillator, and outside manufacturing engineering director suggesting she had COPD but status post pulmonary function test showed no signs of obstructive ventilatory disease per patient. Outside manufacturing engineering director didnt initiate Symbicort treatment with the patient does know to help with nocturnal chest tightness. She also notes progressive paroxysmal nocturnal dyspnea/2-3 pulmonary orthopnea over this period of time. The last 24 shes had dramatic resolution of her shortness of breath as well as PND. Acute positive findings: PND, white phlegm production, rhinorrhea, nausea and improving abdominal pain, diarrhea Chronic positive findings: one years of poor apatite with weight lose She was recently admitted for similar symptoms -----. She does not the use of DayQuil, which she has been recommended not to take. Denies: fevers, sore throat, congestions, ear pain, TEMPLE, no change in vision, classic cardiac chest pain, vomiting, diarrhea, pain with urination, or melena, palpitations In the ED the patient was hypertensive at 170-240/106 with a SaO2 of 94-98 with O2 delivery ranging from ra-[id number]. Work-up: 1) CBC: WBC count 12.69----8.54 2)D-dimer: 4190 3)VB.41/46converted to ABG7.45/38 4)Est Cr Clearance: 42 5)Pro-BNP: 8757 6)Influenza Type A Antigen: negative 7)Influenza Type B Antigen: negative 8)Troponin: [id number] 9)CK-MB: 5.84.8 10)BUN/Cr: 25/1.0 11)Albumin: 2.8 12)Blood pending Treatment: 1.DuoNeb 2.Ativan 3.Hydralazine 4.Lasix 5.I/O: -2L 6.ASA 81 7.Symbicort 160/4.5 (2 puffs BID) 8.Coreg 9.Ceftriaxone 1gm Q24 10.Doxycycline 100mg BID PO 11.Flonase QD 12.Atrovent/Xopenex NEBs 13.Hydralazine PRN Historian: patient, EMS Review of Systems Constitutional: reports: weakness, weight loss Eyes: reports: no symptoms ENT: reports: other (sinusitis ), rhinorrhea Cardiovascular: reports: no symptoms Respiratory: reports: shortness of breath, sputum production Gastrointestinal: reports: no symptoms Genitourinary - Female: reports: no symptoms Musculoskeletal: reports: no symptoms Integumentary: reports: no symptoms Neurologic: reports: no symptoms Psychiatric: reports: no symptoms Endocrine: no symptoms Hematologic / Lymphatic: no symptoms Allergic / Immunologic: no symptoms Past Medical History Past Medical History: 1) HTN 2) CAD 3) DM 4) PVD 5) Tobacco: 0.5/ppd 6) CVA 7) AAA with partially thrombosed 8) Skin cancer: Treated over the last 2 years with chemotherapeutic ointments Past Surgical History: 1) Hysterectomy 2) Appendectomy 3) Cholecystectomy Family History Sr. with a history of respiratory dysfunction patient does not know exact diseases at this time Social History Smoking Status: Current Every Day Smoker Marital status: in relationship Housing status: lives with family Occupational Status: retired Allergies Coded Allergies: Acetaminophen (Verified Allergy, Severe, SHORTNESS OF BREATH, 03/14/16) " FELT LIKE MY CHEST WAS BEING CRUSHED Cyclobenzaprine (Verified Allergy, Severe, ANAPHYLAXIS, 03/14/16) mY TONGUE SWELLS Morphine (Verified Allergy, Severe, ANAPHYLAXIS, 03/14/16) " I ALMOST " Oxycodone (Verified Allergy, Severe, SHORTNESS OF BREATH, 03/14/16) " FELT LIKE MY CHEST WAS BEING CRUSHED Uncoded Allergies: CODIENE (Allergy, Severe, ANAPHYLAXIS, 06/10/12) Current Medications Reported Home Medications Medications Dose Route/Sig Max Daily Dose Days Date Category Lasix (Furosemide) Unknown Strength Tab Unknown Dose PO DAILY 90 03/14/16 Reported Symbicort 160/4.5 Inhaler (Budesonide/Formoterol Fumarate) Aero 2 Puffs INH BID 03/14/16 Reported Aldactone (Spironolactone) 25 Mg Tab 25 Mg PO DAILY 03/14/16 Reported Coreg (Carvedilol) 12.5 Mg Tab 12.5 Mg PO BID 03/14/16 Reported Lipitor (Atorvastatin Calcium) 10 Mg Tab 10 Mg PO DAILY 03/14/16 Reported Protonix (Pantoprazole Sodium) 40 Mg Tab 40 Mg PO DAILY 03/14/16 Reported Aspirin Ec (Aspirin) 81 Mg Tab 81 Mg PO DAILY 03/14/16 Reported Vitamin D 1000 Unit (Cholecalciferol) 1,000 Unit Cap 1,000 Inter.unit PO DAILY 06/10/12 Reported Nitrostat (Nitroglycerin) 0.4 Mg Tab 0.4 Mg UT PRN 06/10/12 Reported Imdur Ext Rel (Isosorbide Mononitrate) 30 Mg Ertab 30 Mg PO QAM 06/10/12 Reported Physical Physical Exam Vital Signs: Date Time Temp Pulse Resp B/P Pulse Ox O2 Delivery O2 Flow Rate FiO2 03/15/16 07:47 36.6 69 18 136/70 99 Nasal Cannula 1.0 03/15/16 07:00 67 16 97 Nasal Cannula 1.0 03/15/16 04:45 Nasal Cannula 1.0 03/15/16 03:58 36.4 67 18 152/75 99 Nasal Cannula 1.0 03/15/16 02:13 72 16 96 Nasal Cannula 1.0 03/15/16 00:00 Nasal Cannula 1.0 03/14/16 23:27 36.6 60 18 103/61 97 Nasal Cannula 1.0 03/14/16 20:11 36.4 78 18 115/71 98 Nasal Cannula 3.0 03/14/16 20:03 72 16 98 Nasal Cannula 1.5 03/14/16 20:00 98 Nasal Cannula 2.0 03/14/16 17:45 69 20 116/69 96 Nasal Cannula 3.0 03/14/16 16:03 36.5 71 24 175/86 97 Nasal Cannula 3.0 03/14/16 15:00 Nasal Cannula 2.0 03/14/16 14:57 36.4 72 19 180/82 97 03/14/16 14:15 81 20 186/90 98 03/14/16 13:30 98 Nasal Cannula 2.0 03/14/16 13:30 69 14 184/100 98 Room Air 03/14/16 12:27 65 16 184/97 98 Room Air 03/14/16 12:25 64 03/14/16 09:49 76 14 206/106 97 Nasal Cannula 4.0 03/14/16 09:18 94 Nasal Cannula 4.0 General Appearance: WELL-APPEARING Head: NORMOCEPHALIC, ATRAUMATIC Eyes: PERRLA, NO DISCHARGE, EOMI, SCLERAE NORMAL, CONJUNCTIVAE NORMAL ENT: NORMAL EAR EXAM, NORMAL NASAL EXAM, NORMAL MOUTH EXAM, NORMAL THROAT EXAM , NORMAL DENTAL EXAM Neck: NORMAL RANGE OF MOTION, NO TENDERNESS, TRACHEA MIDLINE, NO STRIDOR Respiratory: BREATH SOUNDS NORMAL, CLEAR TO AUSCULTATION, CLEAR TO PERCUSSION, NO RESPIRATORY DISTRESS Cardiovasular: REGULAR RATE/RHYTHM, NORMAL S1S2, NO M/G/R, NO MURMUR, NO GALLOP Abdomen: NON TENDER, NORMAL BOWEL SOUNDS, NO REBOUND, NO MASSES, NO GUARDING, NO ORGANOMEGALY Genitourinary - Female: EXTERNAL GENITALIA NORMAL Back: NORMAL INSPECTION, NO MIDLINE TENDERNESS, NO CVA TENDERNESS, NO PARAVERTEBRAL TTP Upper Extremities: NO EDEMA Lower Extremities: NO EDEMA Pulses: carotid (R) (1+), carotid (L) (1+), dorsalis pedis (R) (1+), dorsalis pedis (L) (1+) Neuro: ALERT, ORIENTED x 3, NORMAL MOTOR EXAM, NORMAL SENSATION, NORMAL CEREBELLAR EXAM, NORMAL SPEECH Reflexes: biceps (R) (2+), bicpes (L) (2+) Babinski Testing: right (downgoing), left (downgoing) Psychiatric: NORMAL AFFECT, NO SUICIDAL IDEATION, CONTRACTS FOR SAFETY Diagnostics Labs Results Past 24 Hours Test 03/14/16 08:50 03/14/16 09:10 03/14/16 09:45 03/14/16 14:22 Range/Units White Blood Count 12.69 4.8-10.8 K/uL Red Blood Count 4.56 4.2-5.4 M/uL Hemoglobin 13.7 12.0-16.0 g/dL Hematocrit 41.0 37-47 % Mean Corpuscular Volume 89.9 80-100 fL Mean Corpuscular Hemoglobin 30.0 25-34 pg Mean Corpuscular Hemoglobin Concent 33.4 32-36 g/dl Platelet Count 321 130-400 K/uL Mean Platelet Volume 10.4 7.4-10.4 fL Neutrophils (%) (Auto) 76.0 % Lymphocytes (%) (Auto) 16.3 % Monocytes (%) (Auto) 6.8 % Eosinophils (%) (Auto) 0.1 % Basophils (%) (Auto) 0.1 % Neutrophils # (Auto) 9.65 1.4-6.5 K/uL Lymphocytes # (Auto) 2.07 1.2-3.4 K/uL Monocytes # (Auto) 0.86 0.11-0.59 K/uL Eosinophils # (Auto) 0.01 0-0.5 K/uL Basophils # (Auto) 0.01 0-0.2 K/uL RDW Standard Deviation 42.1 36.4-46.3 fL RDW Coefficient of Variation 12.9 11.5-14.5 % Immature Granulocyte % (Auto) 0.7 % Immature Granulocyte # (Auto) 0.09 0.00-0.02 K/uL Prothrombin Time 10.3 9.0-12.0 SECONDS Prothromb Time International Ratio 1.0 0.9-1.1 Activated Partial Thromboplast Time 23.2 21.0-31.0 SECONDS Partial Thromboplastin Ratio 0.9 D-Dimer 4190 0-500 ug/L FEU Venous Blood pH 7.41 7.36-7.41 Venous Blood Partial Pressure CO2 46 38.0-50.0 mmHg Venous Blood Partial Pressure O2 39 mmHg Venous Blood HCO3 29 mmol/L Venous Blood Oxygen Saturation 72.7 % Venous Blood Base Excess 3.6 mmol/L Sodium Level 143 136-145 mmol/L Potassium Level 3.6 3.5-5.1 mmol/L Chloride Level 107 98-107 mmol/L Carbon Dioxide Level 26 21-32 mmol/L Anion Gap 10.0 3-11 mmol/L Blood Urea Nitrogen 29 7-18 mg/dl Creatinine 0.86 0.60-1.20 mg/dl Est Creatinine Clear Calc Drug Dose 41.8 ml/min Estimated GFR () 77.7 Estimated GFR (Non- 67.0 BUN/Creatinine Ratio 33.7 10-20 Random Glucose 86 70-99 mg/dl Estimated Average Glucose 128 mg/dl Hemoglobin A1c 6.1 4.5-5.6 % Calcium Level 8.7 8.5-10.1 mg/dl Total Bilirubin 0.2 0.2-1 mg/dl Aspartate Amino Transf (AST/SGOT) 130 15-37 U/L Alanine Aminotransferase (ALT/SGPT) 91 12-78 U/L Alkaline Phosphatase 172 45-117 U/L Troponin I 0.052 0-0.045 ng/ml Pro-B-Type Natriuretic Peptide 8757 0-900 pg/ml Total Protein 7.3 6.4-8.2 gm/dl Albumin 3.0 3.4-5.0 gm/dl Globulin 4.3 2.5-4.0 gm/dl Albumin/Globulin Ratio 0.7 0.9-2 Thyroid Stimulating Hormone (TSH) 3.030 0.300-4.500 uIu/ml Influenza Type A Antigen Neg for Influ A NEG Influenza Type B Antigen Neg for Influ B NEG Urine Color YELLOW Urine Appearance CLEAR CLEAR Urine pH 7.5 4.5-7.5 Urine Specific [place] 1.009 1.000-1.030 Urine Protein TRACE NEG Urine Glucose (UA) NEG NEG Urine Ketones NEG NEG Urine Occult Blood NEG NEG Urine Nitrite NEG NEG Urine Bilirubin NEG NEG Urine Urobilinogen NEG NEG Urine Leukocyte Esterase NEG NEG Urine WBC (Auto) 1-5 0-5 /hpf Urine RBC (Auto) 0-4 0-4 /hpf Urine Hyaline Casts (Auto) 0 0-5 /lpf Urine Epithelial Cells (Auto) 10-20 0-5 /lpf Urine Bacteria (Auto) NEG NEG Carcinoembryonic Antigen 2.3 0-2.5 ng/ml Hepatitis B Surface Antigen NEG NEG Hepatitis C Antibody NEG NEG Test 03/14/16 18:24 03/15/16 02:55 03/15/16 06:05 Range/Units Total Creatine Kinase 45 33 26-192 U/L Creatine Kinase MB 2.6 1.6 0.5-3.6 ng/ml Creatine Kinase MB Ratio 5.8 4.8 0-3.0 Troponin I 0.188 0.157 0-0.045 ng/ml White Blood Count 8.54 4.8-10.8 K/uL Red Blood Count 4.74 4.2-5.4 M/uL Hemoglobin 14.1 12.0-16.0 g/dL Hematocrit 42.8 37-47 % Mean Corpuscular Volume 90.3 80-100 fL Mean Corpuscular Hemoglobin 29.7 25-34 pg Mean Corpuscular Hemoglobin Concent 32.9 32-36 g/dl RDW Standard Deviation 43.0 36.4-46.3 fL RDW Coefficient of Variation 13.1 11.5-14.5 % Platelet Count 296 130-400 K/uL Mean Platelet Volume 10.2 7.4-10.4 fL Sodium Level 143 136-145 mmol/L Potassium Level 3.5 3.5-5.1 mmol/L Chloride Level 101 98-107 mmol/L Carbon Dioxide Level 33 21-32 mmol/L Anion Gap 9.0 3-11 mmol/L Blood Urea Nitrogen 25 7-18 mg/dl Creatinine 1.00 0.60-1.20 mg/dl Est Creatinine Clear Calc Drug Dose 36.0 ml/min Estimated GFR () 64.7 Estimated GFR (Non- 55.8 BUN/Creatinine Ratio 24.6 10-20 Random Glucose 82 70-99 mg/dl Calcium Level 8.7 8.5-10.1 mg/dl Phosphorus Level 4.5 2.5-4.9 mg/dl Magnesium Level 2.2 1.8-2.4 mg/dl Total Bilirubin 0.3 0.2-1 mg/dl Direct Bilirubin < 0.1 0-0.2 mg/dl Aspartate Amino Transf (AST/SGOT) 39 15-37 U/L Alanine Aminotransferase (ALT/SGPT) 58 12-78 U/L Alkaline Phosphatase 163 45-117 U/L Total Protein 6.9 6.4-8.2 gm/dl Albumin 2.8 3.4-5.0 gm/dl Triglycerides Level 180 0-150 mg/dl Cholesterol Level 195 0-200 mg/dl HDL Cholesterol 88 mg/dl LDL Cholesterol, Calculated 71 mg/dl VLDL Cholesterol, Calculated 36 mg/dl Cholesterol/HDL Ratio 2.2 Microbiology Results 03/14/16 Blood Culture, Received Pending 03/14/16 Blood Culture, Received Pending Diagnostic Radiology CXR with ABD CHEST 1.Progression of the interstitial thickening consistent with mild pulmonary edema. 1.Unremarkable bowel gas pattern. No evidence for bowel obstruction. 2.Small focal airspace opacity within the right upper lobe. This could represent a component of the pulmonary edema or developing pneumonia CT Had non-contrast 1.No acute intracranial abnormality. Old left basal ganglia infarct Thoracic CTA Compared to 03/14/16 4 cm infra-renal AAA with no evidence for dissection LVH with mild cardiomegaly Trace bilateral pleural effusions No hilar lymphadenopathy 2R 1.4cm azam-tracheal lymph Mild diffuse body wall edema Trace mucoid material within the main-stem bronchus Mild emphysema Interlobular septal thickening and azam-bronchial thickening (favoring mild interstitial pulmonary edema) GGO at the lung bases 2cm-- focal consolidation in the RUL posterior sub-segment (RB2) 1.5x0.9cm-- focal nodular component surrounding a pulmonary artery Small sub-pleural nodule along the right major fissure 1 cm irregular density within the right upper lobe anteriorly (RB3) Small focal area of consolidation within the Lingula posteriorly abutting the major fissure No evidence for pulmonary embolus CXR 05/31/12: WNL EKG RRR-92/LBBB/left axis deviation Impression Assessment and Plan 76-year-old female with multiple pulmonary nodules and progressive weight loss over the last year: #1 pulmonary nodules: Patient is a long history of smoking with secondhand smoking exposure as well as exposure to his best this, 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 At this time I suggest we obtain previous records as she has been worked up by an outside manufacturing engineering director within the last 2- 3 months with: Pulmonary function tests, either chest x-ray or thoracic CAT scan in 6 minute walk study. Patient is at risk for primary pulmonary carcinoma as well as possible multilobar pneumonia. I do agree with the current antibiotic course and will continue. #2 ID: Agree with current antibiotic uses ceftriaxone/doxycycline no continue at this time. We'll add on pro-calcitonin. #3 pulmonary: Patient has been worked up for COPD by pulmonary function tests as well as 6 minute walk test. I would like to obtain the studies as she knows she does not have COPD but does receive benefit from Symbicort and nebulizers. They do appear to be benefiting her patient will continue this intervention. #4 cardiac: Patient has also been worked up by outside snow removal supervisor at this time would like to review those previous evaluations and studies. We'll continue to follow up thank you for this consultation.
[2016-03-15] MEDS: FLUTICASONE PROPIONATE NA SPR 16 GM BTL SCH (09:10)
[2016-03-15] MEDS: ASPIRIN 81 MG ECTAB PO SCH (09:11)
[2016-03-15] MEDS: BUDESONIDE/FORMOTEROL FUMARATE 160/4.5 60 PUFFS/INHALER INH SCH ×2 (09:11→20:08)
[2016-03-15] MEDS: DOXYCYCLINE HYCLATE 100 MG CAP PO SCH ×2 (09:11→21:00)
[2016-03-15] MEDS: PANTOprazole SOD 40 MG TAB PO SCH (09:12)
[2016-03-15] MEDS: CARVEDILOL 12.5 MG TAB PO SCH ×2 (09:13→20:09)
[2016-03-15] MEDS: SPIRONOLACTONE 25 MG TAB PO SCH (09:13)
[2016-03-15] MEDS: CHOLECALCIFEROL 1000 INTER.UNIT TAB PO SCH (09:13)
[2016-03-15] MEDS: ISOSORBIDE MONONITRATE 30 MG TABCR PO SCH (09:13)
--- NOTE | 2016-03-15 09:35 | ECHOCARDIOGRAM REPORT ---
*NOTICE TO RECEIVING DEMOCRAT AGENCY This information is strictly Confidential and protected under [place] law. [place] law prohibits you from making any further disclosure of this information unless further disclosure is expressly permitted by the written consent of the person to whom it pertains or is authorized by law. A general authorization for the release of medical or other information is not sufficient for this purpose. Hospital accepts no responsibility if the information is made available to any other person, INCLUDING THE PATIENT. Interpretation Summary * Name: ARIANNE LIVINGSTON Study Date: 03/15/2016 07:40 AM BP: 152/75 mmHg * Patient Location: C.2T\S\E220\S\1 HR: 67 * : 1940 (M/d/yyy) Gender: Female Height: 60 in * Age: 75 yrs Ethnicity: CA Weight: 108 lb * Ordering Physician: Sowmya Gibbs * Referring Physician: Self, Referred * Performed By: Ethel Crawford RCS * * Reason For Study: CHEST PAIN * BSA: 1.4 m2 * -- Conclusions -- * The left ventricle is normal in size. * There is concentric moderate LV wall thickening with * hyperechogenicity. * Septal motion is consistent with conduction abnormality. * There is mild to moderate global hypokinesis of the left ventricle. * Ejection Fraction = 35-40%. * Grade I diastolic dysfunction, (abnormal relaxation pattern). * Then aortic valve leaflets are moderately thickened along leaflet edges. * There is trace mitral regurgitation. * There is trace tricuspid regurgitation. Procedure Details * A complete two-dimensional transthoracic echocardiogram was performed (2D, M-mode, Doppler and color flow Doppler). Left Ventricle * The left ventricle is normal in size. * There is concentric moderate LV wall thickening with hyperechogenicity. * Left ventricular systolic function is moderately reduced. * Ejection Fraction = 35-40%. * Septal motion is consistent with conduction abnormality. * There is mild to moderate global hypokinesis of the left ventricle. Mitral Valve * The mitral valve anatomy is normal. * There is no mitral valve stenosis. * There is trace mitral regurgitation. Tricuspid Valve * The tricuspid valve anatomy is normal. * There is no tricuspid stenosis. * There is trace tricuspid regurgitation. Aortic Valve * The aortic valve is trileaflet. * Then aortic valve leaflets are moderately thickened along leaflet edges. * No hemodynamically significant valvular aortic stenosis. * There is no significant aortic regurgitation. Great Vessels * Normal inferior vena cava diameter and respiratory variation suggests normal central venous pressure. Left Ventricular Diastolic Function * Grade I diastolic dysfunction, (abnormal relaxation pattern). MMode 2D Measurements and Calculations IVSd 1.1 cm IVSs 1.2 cm LVIDd 4.4 cm LVIDs 3.5 cm LVPWd 1.5 cm LVPWs 1.9 cm IVS/LVPW 0.79 FS 21.4 % EDV(Teich) 89.8 ml ESV(Teich) 50.6 ml EF(Teich) 43.6 % EDV(cubed) 87.9 ml ESV(cubed) 42.6 ml EF(cubed) 51.5 % % IVS thick 7.4 % % LVPW thick 33.5 % LV mass(C)d 218.9 grams LV mass(C)dI 152.4 grams/m\S\2 LV mass(C)s 212.0 grams LV mass(C)sI 147.6 grams/m\S\2 CO(Teich) 2.6 l/min CI(Teich) 1.8 l/min/m\S\2 SV(Teich) 39.2 ml SI(Teich) 27.3 ml/m\S\2 CO(cubed) 3.0 l/min CI(cubed) 2.1 l/min/m\S\2 SV(cubed) 45.2 ml SI(cubed) 31.5 ml/m\S\2 Ao root diam 2.9 cm Ao root area 6.8 cm\S\2 ACS 1.9 cm LA dimension 3.2 cm LA/Ao 1.1 LVAd ap4 27.5 cm\S\2 LVLd ap4 7.9 cm EDV(MOD-sp4) 79.0 ml LVAs ap4 20.7 cm\S\2 LVLs ap4 7.2 cm ESV(MOD-sp4) 50.0 ml EF(MOD-sp4) 36.7 % LVAd ap2 25.0 cm\S\2 LVLd ap2 7.6 cm EDV(MOD-sp2) 73.0 ml LVAs ap2 18.2 cm\S\2 LVLs ap2 6.9 cm ESV(MOD-sp2) 43.0 ml EF(MOD-sp2) 41.1 % CO(MOD-sp4) 1.9 l/min CI(MOD-sp4) 1.3 l/min/m\S\2 SV(MOD-sp4) 29.0 ml SI(MOD-sp4) 20.2 ml/m\S\2 CO(MOD-sp2) 2.0 l/min CI(MOD-sp2) 1.4 l/min/m\S\2 SV(MOD-sp2) 30.0 ml SI(MOD-sp2) 20.9 ml/m\S\2 Doppler Measurements and Calculations MV E max suraj 71.6 cm/sec MV A max suraj 108.6 cm/sec MV E/A 0.66 MV P1/2t max suraj 84.5 cm/sec MV P1/2t 76.6 msec MVA(P1/2t) 2.9 cm\S\2 MV dec slope 322.9 cm/sec\S\2 MV dec time 0.29 sec Ao V2 max 139.4 cm/sec Ao max PG 7.8 mmHg Ao max PG (full) 5.1 mmHg LV V1 max PG 2.7 mmHg LV V1 max 81.4 cm/sec PA V2 max 97.0 cm/sec PA max PG 3.8 mmHg TR max suraj 190.5 cm/sec
--- NOTE | 2016-03-15 09:37 | CARDIOLOGY CONSULTATION ---
DATE OF CONSULTATION: 03/15/2016 REFERRING PHYSICIAN: Dr. Gibbs. PRIMARY CARE PHYSICIAN: Dr. Ye from [place]. HISTORY OF PRESENT ILLNESS: The patient is a 75-year-old female admitted with acute worsening shortness of breath, underlying history is notable for pulmonary disease and chronic tobacco use, history of hypertension, abdominal aortic aneurysm. She carries a history of extensive prior cardiac workup with what appears to be a nonischemic cardiomyopathy by history noting cardiac catheterization demonstrated minimal blockage of one vessel only with some [id number] LV dysfunction. At one point in time, they contemplated putting a defibrillator in per her description, but then notes her heart got better afterwards. She presents now noting worsening shortness of breath times several weeks with treatments including course of therapy with antibiotics and corticosteroids. Evening of admission, the patient developed worsening cough and shortness of breath and marked dyspnea and presented to the Emergency Room for further evaluation. On presentation, the patient was markedly hypertensive with possible component of bronchitis, pneumonia with possible superimposed congestive heart failure. The patient received IV diuretics, antibiotics with the brisk diuresis. She feels improved here this morning. She denies fevers or chills. Does have a cough minimally productive of thick white sputum. Notes no sense of tachypalpitations. Notes no syncope. Notes no near syncope. Notes no overt fevers or chills. Has lost over 30 pounds in the last 1 year's time. Appetite has generally been good. Notes no recent bleeding difficulties, but carries a history of past multiple hospitalizations with lower GI bleeding felt secondary to AV malformations by patient's description. She denies dysuria or hematuria. Denies headache or visual changes. ALLERGIES: ACETAMINOPHEN, CODEINE, CYCLOBENZAPRINE, MORPHINE AND OXYCODONE. MEDICATIONS: Per list prior to hospitalization were aspirin 81 mg per day, atorvastatin 10 mg p.o. day, Symbicort 2 puffs b.i.d., carvedilol 12.5 mg b.i.d., cholecalciferol 1000 units every day, furosemide with patient not using Imdur 30 mg p.o. daily, Protonix 40 mg p.o. day, spironolactone 25 mg p.o. every day. PAST SURGICAL HISTORY: Notable for prior hysterectomy, cholecystectomy, and appendectomy. FAMILY HISTORY: Positive for heart disease. SOCIAL HISTORY: The patient is a one-half to one pack per day smoker with chronic tobacco use history. Uses no significant alcoholic beverages. She is currently visiting [facility] where her daughter lives. PHYSICAL EXAMINATION: VITAL SIGNS: Heart rate 69, blood pressure is 136/70. Telemetry reveals no arrhythmias, though with chronic left bundle branch block noted. HEENT: Normocephalic, atraumatic. NECK: Thin. There is no distinct jugular venous distention. LUNGS: Reveal diminished breath sounds with scattered rhonchi on the right with forced cough. CARDIOVASCULAR: Regular. There is an apical forceful displacement. There is a grade 2/6 systolic murmur at the apex. There is no diastolic murmur. ABDOMEN: Soft. Abdominal aorta is palpable at the supraumbilical area. EXTREMITIES: Without cyanosis or clubbing. There is no peripheral edema. There are intact distal pulses. EKG reveals sinus rhythm with left bundle branch block configuration. No evolution during admission. LABORATORY STUDIES: White cell count on admission was 12.6, hemoglobin 13.7, hematocrit 41.0. Sodium is 143, potassium is 3.5, chloride is 101, bicarbonate is 33, BUN is 25, and creatinine is 1.0. CK and MB fractions are normal. Troponins elevated at 0.05, 0.18, and 0.15. Cholesterol was 195 with an LDL of 71 and HDL of 88. TSH was 3.0. IMAGING DATA: Chest x-ray revealed mildly increased in interstitial markings with possible infiltrate right. CT scan of the chest revealed no evidence of pulmonary embolus with diffuse interstitial thickening. IMPRESSION: A 75-year-old female whose history is notable for prior cardiac disease, possible nonischemic cardiomyopathy by description, left bundle branch block on EKG, presents with signs and symptoms of worsening acute respiratory distress, appears multifactorial in etiology. The patient has responded to antibiotics and IV diuretics overnight. Exam now does not suggest acute heart failure. PLAN: We will review echocardiogram, obtain records from outside hospital with further recommendations to follow pending review of studies.
--- NOTE | 2016-03-15 10:05 | DIAGNOSTIC IMAGING REPORT ---
TWO VIEW CHEST CLINICAL HISTORY: Dyspnea. FINDINGS: PA and lateral chest radiographs are compared to compared to chest x-ray and chest CT dated 03/14/2016. The heart is mildly enlarged and there is atherosclerotic calcification of the thoracic aorta. The pulmonary vasculature is noncongested. Advanced emphysema and chronic interstitial thickening are unchanged. Small pleural effusions are noted. An ill-defined airspace opacity in the right upper lobe is similar to previous appear There is no pneumothorax. The skeletal structures are osteopenic. The bony thorax appears intact. IMPRESSION: 1. Cardiomegaly and emphysema. 2. An airspace opacity in the right upper lobe persists. This could be on an infectious/inflammatory basis or could represent neoplasm. 1-2 month follow-up chest CT is again recommended for reassessment. 3. Small pleural effusions. Electronically signed by: Jeff Dsouza M.D. 03/15/2016 10:03 AM Dictated Date/Time: 03/15/2016 10:01 AM
--- NOTE | 2016-03-15 11:16 | Gastrointestinal Consultation ---
Gastrointestinal Consultation Date of Consultation: Mar 15, 2016 Attending Physician: Jagruti Shepherd Consulting Physician: Maykel Caldwell Reason for Consultation: Elevated LFTs History of Present Illness Patient is a 75 year old female w PMHx of HTN, CAD, PVP, hx of CVA, tobacco abuse, admitted for increasing SOB. She had URI x 2 weeks, previously treated w Zpack, Prednisone and Nebulizer. 2 days ago started to have increased thick sputum production, and SOB. Upon evaluation, noted to have elevated BNP, troponin, HTN, negative CT chest for PE, but 1.9 x 0.9 cm nodular area in RUL possible pneumonia vs focal point of pulmonary edema vs nodule; f/u CT is recommended. She is a smoker, also reported 30 lbs weight loss within last year. She is currently being followed by Pulmonology & Cardiology services for these issues above. GI was consulted for elevated LFTs found at admission: Tbili 0.3, AST 130, ALT 91, Alk phos 172. Upon recheck today, values are: Tbili 0.3, AST 39, ALT 58, Alk phos 163. Liver u/s and CT abd/pelvis showed unremarkable liver. Pt resides in [place], [place], currently visiting a family in this area. We currently do not have records from [place]. She reports having elevated LFTs for years w/o clear etiology. She said she has an appt w a [facility] Trimmer in March. She did previously had EGD and colonoscopy at [facility] for dark stools - reports had AVMs which was cauterized. Pt denies any hx of ETOH abuse, tattoos, + hx of blood transfusions 30 yrs ago. Acute hepatitis panel pending. She denies any regular uses of APAP, or family hx of autoimmune diseases. No symptoms of abd pain, n/v. Her main concern is the weight loss. Past Medical/Surgical History Medical Problems: (1) Dyspnea Status: Acute (2) Elevated troponin Status: Acute (3) Hypertensive urgency Status: Acute (4) Lung mass Status: Acute Past Medical History: See above. Past Surgical History: Hysterectomy Appendectomy Cholecystectomy Social History Smoking Status: Current Every Day Smoker Alcohol Use: occasionally Drug Use: none Marital Status: in relationship Occupation Status: retired Allergies Coded Allergies: Acetaminophen (Verified Allergy, Severe, SHORTNESS OF BREATH, 03/14/16) " FELT LIKE MY CHEST WAS BEING CRUSHED Cyclobenzaprine (Verified Allergy, Severe, ANAPHYLAXIS, 03/14/16) mY TONGUE SWELLS Morphine (Verified Allergy, Severe, ANAPHYLAXIS, 03/14/16) " I ALMOST " Oxycodone (Verified Allergy, Severe, SHORTNESS OF BREATH, 03/14/16) " FELT LIKE MY CHEST WAS BEING CRUSHED Uncoded Allergies: DUSTYIENDavida (Allergy, Severe, ANAPHYLAXIS, 06/10/12) Current Medications Home Meds and Scripts Medications Dose Route/Sig Max Daily Dose Days Date Category Lasix (Furosemide) Unknown Strength Tab Unknown Dose PO DAILY 90 03/14/16 Reported Symbicort 160/4.5 Inhaler (Budesonide/Formoterol Fumarate) Aero 2 Puffs INH BID 03/14/16 Reported Aldactone (Spironolactone) 25 Mg Tab 25 Mg PO DAILY 03/14/16 Reported Coreg (Carvedilol) 12.5 Mg Tab 12.5 Mg PO BID 03/14/16 Reported Lipitor (Atorvastatin Calcium) 10 Mg Tab 10 Mg PO DAILY 03/14/16 Reported Protonix (Pantoprazole Sodium) 40 Mg Tab 40 Mg PO DAILY 03/14/16 Reported Aspirin Ec (Aspirin) 81 Mg Tab 81 Mg PO DAILY 03/14/16 Reported Vitamin D 1000 Unit (Cholecalciferol) 1,000 Unit Cap 1,000 Inter.unit PO DAILY 06/10/12 Reported Nitrostat (Nitroglycerin) 0.4 Mg Tab 0.4 Mg UT PRN 06/10/12 Reported Imdur Ext Rel (Isosorbide Mononitrate) 30 Mg Ertab 30 Mg PO QAM 06/10/12 Reported Review of Systems Constitutional: + weight loss, No chills, No fever Respiratory: + cough, + shortness of breath, + sputum Cardiac: No chest pain Abdomen: No nausea, No pain, No vomiting Skin: No itch, No jaundice, No rash Physical Exam Date Time Temp Pulse Resp B/P Pulse Ox O2 Delivery O2 Flow Rate FiO2 03/15/16 08:00 Room Air 03/15/16 07:47 36.6 69 18 136/70 99 Nasal Cannula 1.0 03/15/16 07:00 67 16 97 Nasal Cannula 1.0 03/15/16 04:45 Nasal Cannula 1.0 03/15/16 03:58 36.4 67 18 152/75 99 Nasal Cannula 1.0 03/15/16 02:13 72 16 96 Nasal Cannula 1.0 03/15/16 00:00 Nasal Cannula 1.0 03/14/16 23:27 36.6 60 18 103/61 97 Nasal Cannula 1.0 03/14/16 20:11 36.4 78 18 115/71 98 Nasal Cannula 3.0 03/14/16 20:03 72 16 98 Nasal Cannula 1.5 03/14/16 20:00 98 Nasal Cannula 2.0 03/14/16 17:45 69 20 116/69 96 Nasal Cannula 3.0 03/14/16 16:03 36.5 71 24 175/86 97 Nasal Cannula 3.0 03/14/16 15:00 Nasal Cannula 2.0 03/14/16 14:57 36.4 72 19 180/82 97 03/14/16 14:15 81 20 186/90 98 03/14/16 13:30 98 Nasal Cannula 2.0 03/14/16 13:30 69 14 184/100 98 Room Air 03/14/16 12:27 65 16 184/97 98 Room Air 03/14/16 12:25 64 General Appearance: no apparent distress, + thin Eyes: normal inspection, PERRL, EOMI Neck: supple, no JVD, trachea midline Respiratory/Chest: + decreased breath sounds, + wheezing Cardiovascular: regular rate, rhythm, no gallop, no murmur Abdomen: normal bowel sounds, non tender, soft Extremities: normal inspection, no pedal edema, no calf tenderness Neurologic/Psych: alert, normal mood/affect, oriented x 3 Skin: normal color, no jaundice, no rash Laboratory Results Last 24 Hours Test 03/14/16 14:22 03/14/16 18:24 03/15/16 02:55 03/15/16 06:05 Carcinoembryonic Antigen 2.3 ng/ml Hepatitis B Surface Antigen NEG Hepatitis C Antibody NEG Total Creatine Kinase 45 U/L 33 U/L Creatine Kinase MB 2.6 ng/ml 1.6 ng/ml Creatine Kinase MB Ratio 5.8 4.8 Troponin I 0.188 ng/ml 0.157 ng/ml White Blood Count 8.54 K/uL Red Blood Count 4.74 M/uL Hemoglobin 14.1 g/dL Hematocrit 42.8 % Mean Corpuscular Volume 90.3 fL Mean Corpuscular Hemoglobin 29.7 pg Mean Corpuscular Hemoglobin Concent 32.9 g/dl RDW Standard Deviation 43.0 fL RDW Coefficient of Variation 13.1 % Platelet Count 296 K/uL Mean Platelet Volume 10.2 fL Sodium Level 143 mmol/L Potassium Level 3.5 mmol/L Chloride Level 101 mmol/L Carbon Dioxide Level 33 mmol/L Anion Gap 9.0 mmol/L Blood Urea Nitrogen 25 mg/dl Creatinine 1.00 mg/dl Est Creatinine Clear Calc Drug Dose 36.0 ml/min Estimated GFR () 64.7 Estimated GFR (Non- 55.8 BUN/Creatinine Ratio 24.6 Random Glucose 82 mg/dl Calcium Level 8.7 mg/dl Phosphorus Level 4.5 mg/dl Magnesium Level 2.2 mg/dl Total Bilirubin 0.3 mg/dl Direct Bilirubin < 0.1 mg/dl Aspartate Amino Transf (AST/SGOT) 39 U/L Alanine Aminotransferase (ALT/SGPT) 58 U/L Alkaline Phosphatase 163 U/L Total Protein 6.9 gm/dl Albumin 2.8 gm/dl Triglycerides Level 180 mg/dl Cholesterol Level 195 mg/dl HDL Cholesterol 88 mg/dl LDL Cholesterol, Calculated 71 mg/dl VLDL Cholesterol, Calculated 36 mg/dl Cholesterol/HDL Ratio 2.2 Impression Patient is a 75 year old female currently seen for elevated LFTs which is resolving. She reports having elevated LFTs for years, and going to have appt w her local Collar Trimmer at [place], [place] in March. She is currently being admitted for SOB, cough workup - abnormal finding of CT chest ? pneumonia vs pulmonary edema vs nodule on RUL area. She does have unexpected weight loss of about 30 lbs within last year that's concerning - so far etiology unknown. Differential diagnoses for LFT elevation include: viral hepatitis, acute hepatitis (labs pending), med side effect (Zpack), congestive hepatopathy. Unsure what serologies she has had at [place] for the elevated LFT workup in the past. If persist, and if haven't been performed previously would recommend obtaining serologies for Parvo, CMV, EBV, HSV; alpha 1 antitrypsin, celiac panel , ceruloplasmin, EUSEBIA, AMA, Anti smooth antibody, SPEP. These labs along w possible liver biopsy could be performed in outpt setting by her local Collar Trimmer if still indicated after her discharge. Plan I have seen, examined and agree with the plan as outlined by STEPHANI Rodríguez as above. -exam reveals soft abd -LFTs per patient have been up for a number of years, I am not sure of work up. -Should have serologic w/u (may have already had it) near home in [place] -No signs of hepatic decompensation -Breathing is improved
--- NOTE | 2016-03-15 11:32 | Surgery Consultation ---
Consultation Date of Service Mar 15, 2016. Chief Complaint AAA 3.8cm History of Present Illness The patient is a 75 year old female with hx of HTN, PAD with RLE stent, AAA, seen in consultation today for AAA 3.[address] scan. Pt currently admitted with hypertensive urgency and SOB. Pt states she has known about AAA for a few years and follows with a vascular surgeon in [facility] every 6 months. Denies TEMPLE, fever, chills, chest pain, abd pain, N/V, rest pain, claudication, other complaints. Vitals Vital Signs Past 12 Hours Date Time Temp Pulse Resp B/P Pulse Ox O2 Delivery O2 Flow Rate FiO2 03/15/16 08:00 Room Air 03/15/16 07:47 36.6 69 18 136/70 99 Nasal Cannula 1.0 03/15/16 07:00 67 16 97 Nasal Cannula 1.0 03/15/16 04:45 Nasal Cannula 1.0 03/15/16 03:58 36.4 67 18 152/75 99 Nasal Cannula 1.0 03/15/16 02:13 72 16 96 Nasal Cannula 1.0 03/15/16 00:00 Nasal Cannula 1.0 03/14/16 23:27 36.6 60 18 103/61 97 Nasal Cannula 1.0 Allergies Coded Allergies: Acetaminophen (Verified Allergy, Severe, SHORTNESS OF BREATH, 03/14/16) " FELT LIKE MY CHEST WAS BEING CRUSHED Cyclobenzaprine (Verified Allergy, Severe, ANAPHYLAXIS, 03/14/16) mY TONGUE SWELLS Morphine (Verified Allergy, Severe, ANAPHYLAXIS, 03/14/16) " I ALMOST " Oxycodone (Verified Allergy, Severe, SHORTNESS OF BREATH, 03/14/16) " FELT LIKE MY CHEST WAS BEING CRUSHED Uncoded Allergies: CODIENE (Allergy, Severe, ANAPHYLAXIS, 06/10/12) Home Medications Scheduled Aspirin (Aspirin Ec), 81 MG PO DAILY Atorvastatin (Lipitor), 10 MG PO DAILY Budesonide/Formoterol Fumarate (Symbicort 160/4.5 Inhaler ), 2 PUFFS INH BID Carvedilol (Coreg), 12.5 MG PO BID Cholecalciferol (Vitamin D 1000 Unit), 1,000 INTER.UNIT PO DAILY Furosemide (Lasix), Unknown Dose PO DAILY Isosorbide Mononitrate Ext Rel (Imdur Ext Rel), 30 MG PO QAM Nitroglycerin (Nitrostat), 0.4 MG UT PRN Pantoprazole (Protonix), 40 MG PO DAILY Spironolactone (Aldactone), 25 MG PO DAILY Problem List Medical Problems: (1) AAA (abdominal aortic aneurysm) (2) CAD (coronary artery disease) (3) CVA (cerebral vascular accident) (4) HLD (hyperlipidemia) (5) Hypertension (6) PVD (peripheral vascular disease) (7) SOB (shortness of breath) (8) Tobacco abuse Surgical Problems: (1) H/O: hysterectomy (2) H/O: hysterectomy (3) History of appendectomy (4) History of appendectomy (5) History of cholecystectomy (6) Hx of cholecystectomy Surgical / Medical History Hx Cardiac Surgery: No Hx Abdominal Surgery: Yes (GALLBLADDER, APPY, HYSTER ) Hx Cancer Surgery: Yes (SKIN CA ) Hx Thoracic Surgery: No Hx Orthopedic: No Hx Urinary Tract Surgery: No HX Other Surgery: No Past Medical/Surgical History: Angioplasty/Stent (RLE), High Cholesterol, Hypertension Family History + AAA , nephew with ruptured AAA and repair, and sister with repaired AAA Social History Smoking Status: Current Every Day Smoker Hx Alcohol Use - Type & Amnt: Yes (2-3 A WEEK ) Hx Substance Use -Type & Amnt: No Review of Systems Constitutional: + malaise, No chills Skin: No change in color Eyes: No visual changes ENMT: No sore throat Respiratory: + SANDOVAL, + cough, + short of breath, No hemoptysis Cardiovascular: No chest pain, No chest pressure, No palpitations, No syncope Gastrointestinal: + appetite changes, No abdominal pain, No nausea, No vomiting Genitourinary - Female: No dysuria, No hematuria Neurologic: + lethargy, No dizziness, No headache, No numbness, No tingling Physical Exam Constitutional: General Apperance: well-developed, cachectic Level of Distress: NAD, chronically ill Ambulation: ambulating normally Psychiatric: Mental Status: active & alert, normal mood, normal affect Orientation: oriented except where noted, to time, to place, to person Memory: recent memory normal, remote memory normal Head: normocephalic, atraumatic Eyes: EOM: EOMI ENMT: normal ENT inspection, hearing grossly normal Neck: supple, trachea midline Lungs: Respiratory effort: no dyspnea Auscultation: no rales/crackles, no rhonchi, decreased breath sounds, expiratory wheezing Cardiovascular: Apical Impulse: not displaced Heart Auscultation: RRR, no rubs, no gallops Peripheral Pulses: Pulses: full and equal, in all extremities except if noted Bruits: none appreciated Carotid Pulse: normal on the left, normal on the right Brachial Pulses: normal on the left, normal on the right Radial Pulse: normal on the left, normal on the right Femoral Pulse: normal on the left, normal on the right Posterior Tibialis Pulse: decreased on the left, decreased on the right Dorsalis Pedis Pulse: decreased on the left, decreased on the right Abdomen: Bowel Sounds: normal Inspection & Palpation: soft, masses (pulsatile mass, AAA) Musculoskeletal: normal, normal strength (5/5 throughout), normal tone Extremities: Upper Right: no cyanosis, no edema, no varicosities Upper Left: no cyanosis, no edema, no varicosities Lower Right: no cyanosis, no edema, no varicosities Lower Left: no cyanosis, no edema, no varicosities Neurologic: Cranial Nerves: grossly intact Sensation: grossly intact Assessment and Plan ASSESSMENT and PLAN: AAA 3.8cm PAD asymptomatic Pt's PAD appears stable, and has small AAA noted on imaging. Recommend fu with her regular vacular surgeon every 6-12 months as scheduled, since she is not planning on staying in this area. Please call if needed.
--- NOTE | 2016-03-15 14:39 | Progress Note ---
Medicine Progress Note Date & Time of Visit: Mar 15, 2016 at 14:13. Subjective Pt woke up with tachypnea and respiratory distress having just finished Zpak for cough and congestion. When EMS arrived, they noted RR was 38 and sats were 99%. 15L via NRB was placed en route to ER, where her resp rate normalized to 24. Her oxygen saturation was never low per records. On arrival to the ER, she told the staff the mask was bothering her and was switched to 4LPM via NC and quickly titrated off. In the ER her BP was over 200 as she hadnt taken her morning BP meds, and this improved with administration. She received a Duoneb treatment and Ativan in the ER, as well as Lasix 40mg IV with good response. She is feeling well today with some mild residual cough but no increased work of breathing or conversational dyspnea on room air. She denies any other symptoms at this time aside from chronic post-nasal drip. Seen by pulm, cards, vascular and GI this morning. Awaiting outside records to formulate a more clear plan. Multiple labs are still pending. Objective Last 8 Hrs Date Time Temp Pulse Resp B/P Pulse Ox O2 Delivery O2 Flow Rate FiO2 03/15/16 11:30 36.7 71 18 150/77 93 Room Air 03/15/16 08:00 Room Air 03/15/16 07:47 36.6 69 18 136/70 99 Nasal Cannula 1.0 03/15/16 07:00 67 16 97 Nasal Cannula 1.0 Physical Exam: GEN: WNWD, in no acute distress, alert and appropriate, euvolemic HEENT: NC/AT, normal sclerae, posterior pharyngeal cobblestoning, non- erythematous CARDIO: reg rate, S1/2 heard without m/g/r, no JVD LUNGS: CTA bilaterally, no crackles, rales or wheezes, good diaphragmatic excursion ABD: soft, non-tender, non-distended, no rebound or guarding EXTREMITY: no LE swelling or edema, extremities are warm and well-perfused NEURO: CN 2-12 grossly intact, no gross focal deficits MUSC: moves all extremities equally SKIN: warm and dry Laboratory Results: Last 24 Hours Test 03/14/16 14:22 03/14/16 18:24 03/15/16 02:55 1/30/17 06:05 Carcinoembryonic Antigen 2.3 ng/ml Hepatitis B Surface Antigen NEG Hepatitis C Antibody NEG Total Creatine Kinase 45 U/L 33 U/L Creatine Kinase MB 2.6 ng/ml 1.6 ng/ml Creatine Kinase MB Ratio 5.8 4.8 Troponin I 0.188 ng/ml 0.157 ng/ml White Blood Count 8.54 K/uL Red Blood Count 4.74 M/uL Hemoglobin 14.1 g/dL Hematocrit 42.8 % Mean Corpuscular Volume 90.3 fL Mean Corpuscular Hemoglobin 29.7 pg Mean Corpuscular Hemoglobin Concent 32.9 g/dl RDW Standard Deviation 43.0 fL RDW Coefficient of Variation 13.1 % Platelet Count 296 K/uL Mean Platelet Volume 10.2 fL Sodium Level 143 mmol/L Potassium Level 3.5 mmol/L Chloride Level 101 mmol/L Carbon Dioxide Level 33 mmol/L Anion Gap 9.0 mmol/L Blood Urea Nitrogen 25 mg/dl Creatinine 1.00 mg/dl Est Creatinine Clear Calc Drug Dose 36.0 ml/min Estimated GFR () 64.7 Estimated GFR (Non- 55.8 BUN/Creatinine Ratio 24.6 Random Glucose 82 mg/dl Calcium Level 8.7 mg/dl Phosphorus Level 4.5 mg/dl Magnesium Level 2.2 mg/dl Total Bilirubin 0.3 mg/dl Direct Bilirubin < 0.1 mg/dl Aspartate Amino Transf (AST/SGOT) 39 U/L Alanine Aminotransferase (ALT/SGPT) 58 U/L Alkaline Phosphatase 163 U/L Total Protein 6.9 gm/dl Albumin 2.8 gm/dl Triglycerides Level 180 mg/dl Cholesterol Level 195 mg/dl HDL Cholesterol 88 mg/dl LDL Cholesterol, Calculated 71 mg/dl VLDL Cholesterol, Calculated 36 mg/dl Cholesterol/HDL Ratio 2.2 Date/Time Source Procedure Growth Status 03/14/16 14:28 Blood Blood Culture Pending Received 03/14/16 14:22 Blood Blood Culture Pending Received Assessment & Plan 75 year old female in town to visit family reports to the ED complaining of worsening SOB for one day that was associated with a dry cough and followed a period of several weeks where she was having URI symptoms that had since cleared up. SHORTNESS OF BREATH Causes include but are not limited to acute on chronic heart failure (from the history it sounds like she has a NICM; she is on Coreg and Aldactone), COPD exacerbation, pneumonia, or ACS. -Flu Ag is negative with PCR pending -Pulm was consulted and is awaiting outpatient workup from well logger for plan (recent PFTs and other studies, was placed on Symbicort) -less likely a COPD exacerbation as she is improved quickly and without any exposure to steroids -cont abx for pneumonia -Cards consulted and agrees no further diuretics are needed, compensated-- awaiting records to compare TTE results to old ones-cardiomyopathy is the likely cause of the troponin increase. Pt is also high risk for any anticoagulation as she has been hospitalized for bleeding three times in the past. As there was some discussion of needing a pacemaker in the past, will keep her on telemetry for now while awaiting records. -CTA negative for PE, shows possible consolidation -Empirically treat with Rocephin and Doxycycline for possible pneumonia -cont Scheduled nebs -appreciate specialist recommendations as patient is asking to leave in am. ELEVATED TROPONIN as above, likely 2/2 strain from hypertensive urgency 2/2 noncompliance with meds yesterday in setting of known cardiomyopathy ABDOMINAL PAIN/TRANSAMINITIS/WEIGHT LOSS -? cause -Check CT A/P -check Liver US -hepatitis panel pending -GI consult placed -repeat LFTs in AM have normalized -multiple labs are pending. HYPERTENSIVE URGENCY -SBP >200, CT head negative - improved to the 180s after morning meds -? cause stress, infection, noncompliance -Continue Spirolactone, Imdur, BB -add hydralazine prn -monitor in tele LUNG NODULE -incidental finding of CT chest -is current smoker with history of recent weight loss, decreased appetite -Pulmonology consult placed and plan as above -will need repeat CT chest as outpatient AAA -4cm intrarenal AAA -US reveals aneurysm with clot -patient is seen by outpatient vascular surgeon q 6 months, [address] Stevenson. -Jamir consulted, and recommends follow-up as outpatient CAD -continue ASA, BB, Imdur -hold Statin for elevated LFTs -monitor in tele PVD -s/p stent -continue Aspirin HLD -hold statin for elevated LFTs H/O CVA -continue ASA TOBACCO ABUSE -Cessation counseling given DVT PROPHYLAXIS: Heparin CODE STATUS: FULL CODE Dispo-pt wishes to go home tomorrow, will work to get recs together prior to that time. DO Jose [facility] [address] Hospitalist Consultants: Pulm, Cards, GI, Vascular Surg Current Inpatient Medications: Current Inpatient Medications Medications (Trade) Dose Ordered Sig/Felicita Route Start Time Stop Time Status Last Admin Dose Admin Ioversol (Optiray 320) 111 ml UD PRN IV 03/14/16 09:45 03/18/16 09:44 Heparin Sodium (Porcine) (Heparin Sq 5000 Unit/0.5ml) 5,000 unit Q8 SQ 03/14/16 22:00 04/13/16 21:59 03/15/16 05:55 5,000 UNIT Al Hydrox/Mg Hydrox/Simethicone (Maalox Max Susp) 15 ml Q4H PRN PO 03/14/16 12:45 04/13/16 12:44 Magnesium Hydroxide (Milk Of Magnesia Susp) 30 ml Q12H PRN PO 03/14/16 12:45 04/13/16 12:44 Ondansetron HCl (Zofran Inj) 4 mg Q6H PRN IV 03/14/16 12:45 04/13/16 12:44 Nitroglycerin (Nitrostat Tab) 0.4 mg UD PRN SL 03/14/16 12:45 04/13/16 12:44 Polyethylene (Miralax Powder Packet) 17 gm DAILY PRN PO 03/14/16 14:00 04/13/16 13:59 Aspirin (Ecotrin Tab) 81 mg DAILY PO 03/15/16 09:00 04/14/16 08:59 03/15/16 09:11 81 MG Budesonide/ Formoterol Fumarate (Symbicort 160/ 4.5 Inh) 2 puffs BID INH 03/14/16 21:00 04/13/16 20:59 03/15/16 09:11 2 PUFFS Carvedilol (Coreg Tab) 12.5 mg BID PO 03/14/16 21:00 04/13/16 20:59 03/15/16 09:13 12.5 MG Cholecalciferol (Vitamin D Tab) 1,000 inter.unit DAILY PO 03/15/16 09:00 04/14/16 08:59 03/15/16 09:13 1,000 INTER.UNIT Isosorbide Mononitrate (Imdur Ext Rel Tab) 30 mg QAM PO 03/14/16 16:00 04/13/16 15:59 03/15/16 09:13 30 MG Nitroglycerin (Nitrostat Tab) 0.4 mg PRN UT 03/14/16 12:45 04/13/16 12:44 Pantoprazole Sodium (Protonix Tab) 40 mg DAILY PO 03/15/16 09:00 04/14/16 08:59 03/15/16 09:12 40 MG Spironolactone (Aldactone Tab) 25 mg DAILY PO 03/15/16 09:00 04/14/16 08:59 03/15/16 09:13 25 MG Doxycycline Hyclate 100 mg 100 mg BID PO 03/14/16 21:00 03/21/16 20:59 03/15/16 09:11 100 MG Ceftriaxone Sodium/Dextrose (Rocephin Inj/ Dextrose Add-[place] 50ML) 50 ml @ 100 mls/hr Q24H IV 03/14/16 16:00 03/21/16 15:59 03/14/16 15:47 100 MLS/HR Ipratropium [place] (Atrovent 0.02% 0.5MG/2.5ML Neb) 0.5 mg Q6R INH 03/14/16 15:00 04/13/16 14:59 03/15/16 07:00 0.5 MG Levalbuterol (Xopenex 1.25MG/ 0.5ML Neb) 1.25 mg Q6R INH 03/14/16 15:00 04/13/16 14:59 03/15/16 07:00 1.25 MG Hydralazine HCl (HydrALAZINE INJ) 10 mg Q8 PRN IV. 03/14/16 14:00 04/13/16 13:59 Fluticasone Propionate (Flonase Nasal [place]) 1 sprays DAILY NA 03/14/16 16:00 04/13/16 15:59 03/15/16 09:10 1 SPRAYS Lorazepam (Ativan Tab) 1 mg Q6H PRN PO 03/14/16 19:45 04/13/16 19:44 03/14/16 20:41 1 MG
[2016-03-15 16:48] LABS: INFLUENZA A PCR Neg for Influ A (NEG); INFLUENZA B PCR Neg for Influ B (NEG)
[2016-03-15] MEDS: CEFTRIAXONE SOD INJ 1 GM in DEXTROSE 5% ADD-VANTAGE 50ML 50 ML IV SCH (17:46)
[2016-03-15] MEDS: BOOST PLUS VANILLA PO SCH ×2 (20:09)
[2016-03-15] MEDS: LORAZEPAM 1 MG TAB PO PRN (22:37)
[2016-03-16] VITALS (8 sets, daily range): BP systolic 97–155; BP diastolic 59–82; PULSE 65–73; TEMP 36.4–36.5; O2SAT 90–97
[2016-03-16] MEDS: IPRATROPIUM BROMIDE NEB SOLN 0.02% 2.5 ML VIAL INH SCH ×3 (02:08→14:13)
[2016-03-16] MEDS: LEVALBUTEROL 1.25MG/0.5ML NEB INH SCH ×3 (02:09→14:13)
[2016-03-16] MEDS: HEPARIN SOD 5000 UNIT/0.5 ML CARP SQ SCH (05:05)
[2016-03-16 05:29] LABS: MEAN CELL VOLUME 88.7 fL (80-100); MEAN CORPUSCULAR HEMOGLOBIN 29.4 pg (25-34); MEAN CORPUSCULAR HGB CONC 33.2 g/dl (32-36); MEAN PLATELET VOLUME 10.6 fL (7.4-10.4); PLATELET COUNT 271 K/uL (130-400); RED BLOOD COUNT 4.62 M/uL (4.2-5.4); WHITE BLOOD COUNT 6.16 K/uL (4.8-10.8)
[2016-03-16 05:56] LABS: AST/SGOT 23 U/L (15-37); BLOOD UREA NITROGEN 21 mg/dl (7-18); BUN/CREATININE RATIO 24.5 (10-20); CALCIUM 8.9 mg/dl (8.5-10.1); CARBON DIOXIDE 32 mmol/L (21-32); CHLORIDE 102 mmol/L (98-107); CREATININE 0.84 mg/dl (0.60-1.20); GLUCOSE 81 mg/dl (70-99); MAGNESIUM 2.2 mg/dl (1.8-2.4); POTASSIUM 3.3 mmol/L (3.5-5.1); SODIUM 140 mmol/L (136-145)
[2016-03-16 06:03] LABS: ALKALINE PHOSPHATASE 152 U/L (45-117); ALT/SGPT 45 U/L (12-78); PHOSPHORUS 3.1 mg/dl (2.5-4.9)
[2016-03-16] MEDS: SPIRONOLACTONE 25 MG TAB PO SCH (08:11)
[2016-03-16] MEDS: DOXYCYCLINE HYCLATE 100 MG CAP PO SCH (08:11)
[2016-03-16] MEDS: BUDESONIDE/FORMOTEROL FUMARATE 160/4.5 60 PUFFS/INHALER INH SCH (08:11)
[2016-03-16] MEDS: CARVEDILOL 12.5 MG TAB PO SCH (08:11)
[2016-03-16] MEDS: FLUTICASONE PROPIONATE NA SPR 16 GM BTL SCH (08:11)
[2016-03-16] MEDS: ISOSORBIDE MONONITRATE 30 MG TABCR PO SCH (08:12)
[2016-03-16] MEDS: PANTOprazole SOD 40 MG TAB PO SCH (08:12)
[2016-03-16] MEDS: CHOLECALCIFEROL 1000 INTER.UNIT TAB PO SCH (08:12)
[2016-03-16] MEDS: ASPIRIN 81 MG ECTAB PO SCH (08:12)
[2016-03-16] MEDS: BOOST PLUS VANILLA PO SCH ×2 (08:15)
[2016-03-16] MEDS ORDERED: POTASSIUM CHLORIDE 10 MEQ TABCR PO ONE (09:45)
--- NOTE | 2016-03-16 09:46 | PROGRESS NOTE ---
DATE: 03/16/2016 The patient was seen and examined. Chart, medications, telemetry reviewed in company of her . SUBJECTIVE: The patient notes no complaints this morning, breathing has improved. Notes no chest pains or discomfort. Blood pressures were labile and elevated last evening. OBJECTIVE: VITAL SIGNS: Heart rate 71, blood pressure is 137/82. NECK: Thin. There is no jugular venous distention. LUNGS: Clear to auscultation. CARDIOVASCULAR: Regular. There is no S3 gallop. ABDOMEN: Soft, nontender. EXTREMITIES: Without cyanosis or clubbing. There is no peripheral edema. LABORATORY DATA: White cell count 6.1, hemoglobin is 13.6. Sodium is 140, potassium is 3.3, chloride is 102, bicarbonate 32, BUN is 21, creatinine 0.84. IMPRESSION: A 75-year-old female presented with acute respiratory distress and dyspnea, possible component of diastolic and systolic heart failure superimposed on underlying pulmonary issues. 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 RECOMMENDATIONS: Would add losartan at 25 mg once per day for hypertension and afterload reduction. Continue all other medications as prescribed with the consideration of addition of low-dose diuretic with furosemide 20 mg once per week for volume management. Serum protein electrophoresis will be ordered given hypertrophied left ventricle with moderate left ventricular dysfunction, history of ill-defined cardiomyopathy and weight loss. The patient is anxious to be discharged, no cardiac indications for keeping patient further. She anticipates return to the [facility] and close clinical follow up with her own physicians. I would supplement potassium and make adjustments to medications as noted on discharge.
[2016-03-16] MEDS ORDERED: LOSARTAN POTASSIUM 25 MG TAB PO ONE (10:00)
--- NOTE | 2016-03-16 10:23 | Pulmonology Progress Note ---
Pulmonary Progress Note Date of Service Mar 16, 2016. Attending Terence Solis Subjective The patient is felling much better today and has no active pulmonary complaints Objective Patient is doing well today able to ambulate showing no signs of increased work of breathing: Physical exam: Vital signs reviewed patient stable on room air Respiratory: Clear to auscultation bilaterally Cardiac: S1-S2 regular rate and rhythm Extremity: No dependent edema Assessment & Plan 75-year-old female admitted with multiple pulmonary nodules, shortness of breath and progressive weight loss: 1. nodules: Patient has multiple pulmonary nodules with large right upper lobe posterior subsegment nodule versus infiltrate. She does have a prolonged history of secondhand smoke as well as possible asbestos exposure, previous history of mesothelioma. She is to be discharged today in follow-up with her outside special education teaching assistant. I have stressed the need for follow-up noncontrast CT in the next 6-8 weeks to reevaluate these pulmonary nodules versus infiltrates. #2 ID: This patient was treated for community acquired pneumonia with inpatient status discharge on doxycycline 100 mg by mouth every 12 hours for 7-10 day course would be appropriate. Neck sign #3 pulmonary: Patient will require further follow-up with her outside special education teaching assistant for possible COPD. Data Medications: Current Inpatient Medications Medications (Trade) Dose Ordered Sig/Felicita Route Start Time Stop Time Status Last Admin Dose Admin Ioversol (Optiray 320) 111 ml UD PRN IV 03/14/16 09:45 03/18/16 09:44 Heparin Sodium (Porcine) (Heparin Sq 5000 Unit/0.5ml) 5,000 unit Q8 SQ 03/14/16 22:00 04/13/16 21:59 03/16/16 05:05 5,000 UNIT Al Hydrox/Mg Hydrox/Simethicone (Maalox Max Susp) 15 ml Q4H PRN PO 03/14/16 12:45 04/13/16 12:44 Magnesium Hydroxide (Milk Of Magnesia Susp) 30 ml Q12H PRN PO 03/14/16 12:45 04/13/16 12:44 Ondansetron HCl (Zofran Inj) 4 mg Q6H PRN IV 03/14/16 12:45 04/13/16 12:44 Nitroglycerin (Nitrostat Tab) 0.4 mg UD PRN SL 03/14/16 12:45 04/13/16 12:44 Polyethylene (Miralax Powder Packet) 17 gm DAILY PRN PO 03/14/16 14:00 04/13/16 13:59 Aspirin (Ecotrin Tab) 81 mg DAILY PO 03/15/16 09:00 04/14/16 08:59 03/16/16 08:12 81 MG Budesonide/ Formoterol Fumarate (Symbicort 160/ 4.5 Inh) 2 puffs BID INH 03/14/16 21:00 04/13/16 20:59 03/16/16 08:11 2 PUFFS Carvedilol (Coreg Tab) 12.5 mg BID PO 03/14/16 21:00 04/13/16 20:59 03/16/16 08:11 12.5 MG Cholecalciferol (Vitamin D Tab) 1,000 inter.unit DAILY PO 03/15/16 09:00 04/14/16 08:59 03/16/16 08:12 1,000 INTER.UNIT Isosorbide Mononitrate (Imdur Ext Rel Tab) 30 mg QAM PO 03/14/16 16:00 04/13/16 15:59 03/16/16 08:12 30 MG Nitroglycerin (Nitrostat Tab) 0.4 mg PRN UT 03/14/16 12:45 04/13/16 12:44 Pantoprazole Sodium (Protonix Tab) 40 mg DAILY PO 03/15/16 09:00 04/14/16 08:59 03/16/16 08:12 40 MG Spironolactone (Aldactone Tab) 25 mg DAILY PO 03/15/16 09:00 04/14/16 08:59 03/16/16 08:11 25 MG Doxycycline Hyclate 100 mg 100 mg BID PO 03/14/16 21:00 03/21/16 20:59 03/16/16 08:11 100 MG Ceftriaxone Sodium/Dextrose (Rocephin Inj/ Dextrose Add-[place] 50ML) 50 ml @ 100 mls/hr Q24H IV 03/14/16 16:00 03/21/16 15:59 03/15/16 17:46 100 MLS/HR Ipratropium [place] (Atrovent 0.02% 0.5MG/2.5ML Neb) 0.5 mg Q6R INH 03/14/16 15:00 04/13/16 14:59 03/16/16 07:25 0.5 MG Levalbuterol (Xopenex 1.25MG/ 0.5ML Neb) 1.25 mg Q6R INH 03/14/16 15:00 04/13/16 14:59 03/16/16 07:25 1.25 MG Hydralazine HCl (HydrALAZINE INJ) 10 mg Q8 PRN IV. 03/14/16 14:00 04/13/16 13:59 Fluticasone Propionate (Flonase Nasal [place]) 1 sprays DAILY NA 03/14/16 16:00 04/13/16 15:59 03/16/16 08:11 1 SPRAYS Lorazepam (Ativan Tab) 1 mg Q6H PRN PO 03/14/16 19:45 04/13/16 19:44 03/15/16 22:37 1 MG Enteral Nutritional Formula (Boost Plus Vanilla) 1 can BID17 PO 03/15/16 17:00 04/14/16 16:59 03/16/16 08:15 1 CAN Losartan Potassium (coZAAR TAB) 25 mg QAM PO 03/17/16 09:00 04/16/16 08:59 I & O: 24-Hour Column 03/16/16 08:00 Intake Total 970 ml Output Total 900 ml Balance 70 ml Vital Signs: Date Time Temp Pulse Resp B/P Pulse Ox O2 Delivery O2 Flow Rate FiO2 03/16/16 07:29 36.5 71 18 137/82 93 Room Air 03/16/16 07:25 66 16 90 Room Air 03/16/16 04:00 Room Air 03/16/16 04:00 36.5 67 18 155/78 97 Room Air 03/16/16 02:09 70 16 96 Room Air 03/16/16 00:00 Room Air 03/16/16 00:00 36.4 65 18 148/80 97 Room Air 03/15/16 20:00 36.6 87 18 184/96 97 Room Air 03/15/16 20:00 Room Air 03/15/16 19:42 82 16 91 Room Air 03/15/16 16:20 36.7 76 18 172/75 92 Room Air 03/15/16 16:00 Room Air 03/15/16 14:45 78 16 95 Room Air 03/15/16 12:00 Room Air 03/15/16 11:30 36.7 71 18 150/77 93 Room Air Laboratory Results: Last 24 Hours Test 03/15/16 14:20 03/16/16 04:59 03/16/16 09:45 Influenza Type A (RT-PCR) Neg for Influ A Influenza Type B (RT-PCR) Neg for Influ B White Blood Count 6.16 K/uL Red Blood Count 4.62 M/uL Hemoglobin 13.6 g/dL Hematocrit 41.0 % Mean Corpuscular Volume 88.7 fL Mean Corpuscular Hemoglobin 29.4 pg Mean Corpuscular Hemoglobin Concent 33.2 g/dl RDW Standard Deviation 41.6 fL RDW Coefficient of Variation 12.9 % Platelet Count 271 K/uL Mean Platelet Volume 10.6 fL Sodium Level 140 mmol/L Potassium Level 3.3 mmol/L Chloride Level 102 mmol/L Carbon Dioxide Level 32 mmol/L Anion Gap 6.0 mmol/L Blood Urea Nitrogen 21 mg/dl Creatinine 0.84 mg/dl Est Creatinine Clear Calc Drug Dose 42.8 ml/min Estimated GFR () 79.9 Estimated GFR (Non- 69.0 BUN/Creatinine Ratio 24.5 Random Glucose 81 mg/dl Calcium Level 8.9 mg/dl Phosphorus Level 3.1 mg/dl Magnesium Level 2.2 mg/dl Total Bilirubin 0.3 mg/dl Direct Bilirubin < 0.1 mg/dl Aspartate Amino Transf (AST/SGOT) 23 U/L Alanine Aminotransferase (ALT/SGPT) 45 U/L Alkaline Phosphatase 152 U/L Total Protein 6.4 gm/dl Albumin 2.7 gm/dl
--- NOTE | 2016-03-16 11:02 | Gastroenterology Progress Note ---
Progress Note Date of Service: Mar 16, 2016 Subjective Pt evaluation today including: conversation w/ patient, physical exam, chart review, lab review, review of inpatient medication list Pt reports breathing is a lot better, inquiring about possible DC today. LFTs normalizing, denies any abd pain, n/v, appetite fair. Review of Systems Constitutional: No chills, No fever Respiratory: No cough, No shortness of breath Cardiac: No chest pain Abdomen: No nausea, No pain, No vomiting Medications Current Inpatient Medications Medications (Trade) Dose Ordered Sig/Felicita Route Start Time Stop Time Status Last Admin Dose Admin Ioversol (Optiray 320) 111 ml UD PRN IV 03/14/16 09:45 03/18/16 09:44 Heparin Sodium (Porcine) (Heparin Sq 5000 Unit/0.5ml) 5,000 unit Q8 SQ 03/14/16 22:00 04/13/16 21:59 03/16/16 05:05 5,000 UNIT Al Hydrox/Mg Hydrox/Simethicone (Maalox Max Susp) 15 ml Q4H PRN PO 03/14/16 12:45 04/13/16 12:44 Magnesium Hydroxide (Milk Of Magnesia Susp) 30 ml Q12H PRN PO 03/14/16 12:45 04/13/16 12:44 Ondansetron HCl (Zofran Inj) 4 mg Q6H PRN IV 03/14/16 12:45 04/13/16 12:44 Nitroglycerin (Nitrostat Tab) 0.4 mg UD PRN SL 03/14/16 12:45 04/13/16 12:44 Polyethylene (Miralax Powder Packet) 17 gm DAILY PRN PO 03/14/16 14:00 04/13/16 13:59 Aspirin (Ecotrin Tab) 81 mg DAILY PO 03/15/16 09:00 04/14/16 08:59 03/16/16 08:12 81 MG Budesonide/ Formoterol Fumarate (Symbicort 160/ 4.5 Inh) 2 puffs BID INH 03/14/16 21:00 04/13/16 20:59 03/16/16 08:11 2 PUFFS Carvedilol (Coreg Tab) 12.5 mg BID PO 03/14/16 21:00 04/13/16 20:59 03/16/16 08:11 12.5 MG Cholecalciferol (Vitamin D Tab) 1,000 inter.unit DAILY PO 03/15/16 09:00 04/14/16 08:59 03/16/16 08:12 1,000 INTER.UNIT Isosorbide Mononitrate (Imdur Ext Rel Tab) 30 mg QAM PO 03/14/16 16:00 04/13/16 15:59 03/16/16 08:12 30 MG Nitroglycerin (Nitrostat Tab) 0.4 mg PRN UT 03/14/16 12:45 04/13/16 12:44 Pantoprazole Sodium (Protonix Tab) 40 mg DAILY PO 03/15/16 09:00 04/14/16 08:59 03/16/16 08:12 40 MG Spironolactone (Aldactone Tab) 25 mg DAILY PO 03/15/16 09:00 04/14/16 08:59 03/16/16 08:11 25 MG Doxycycline Hyclate 100 mg 100 mg BID PO 03/14/16 21:00 03/21/16 20:59 03/16/16 08:11 100 MG Ceftriaxone Sodium/Dextrose (Rocephin Inj/ Dextrose Add-[place] 50ML) 50 ml @ 100 mls/hr Q24H IV 03/14/16 16:00 03/21/16 15:59 03/15/16 17:46 100 MLS/HR Ipratropium [place] (Atrovent 0.02% 0.5MG/2.5ML Neb) 0.5 mg Q6R INH 03/14/16 15:00 04/13/16 14:59 03/16/16 07:25 0.5 MG Levalbuterol (Xopenex 1.25MG/ 0.5ML Neb) 1.25 mg Q6R INH 03/14/16 15:00 04/13/16 14:59 03/16/16 07:25 1.25 MG Hydralazine HCl (HydrALAZINE INJ) 10 mg Q8 PRN IV. 03/14/16 14:00 04/13/16 13:59 Fluticasone Propionate (Flonase Nasal [place]) 1 sprays DAILY NA 03/14/16 16:00 04/13/16 15:59 03/16/16 08:11 1 SPRAYS Lorazepam (Ativan Tab) 1 mg Q6H PRN PO 03/14/16 19:45 04/13/16 19:44 03/15/16 22:37 1 MG Enteral Nutritional Formula (Boost Plus Vanilla) 1 can BID17 PO 03/15/16 17:00 04/14/16 16:59 03/16/16 08:15 1 CAN Losartan Potassium (coZAAR TAB) 25 mg QAM PO 03/17/16 09:00 04/16/16 08:59 Objective Vital Signs Date Time Temp Pulse Resp B/P Pulse Ox O2 Delivery O2 Flow Rate FiO2 03/16/16 08:00 Room Air 03/16/16 07:29 36.5 71 18 137/82 93 Room Air 03/16/16 07:25 66 16 90 Room Air 03/16/16 04:00 Room Air 03/16/16 04:00 36.5 67 18 155/78 97 Room Air 03/16/16 02:09 70 16 96 Room Air 03/16/16 00:00 Room Air 03/16/16 00:00 36.4 65 18 148/80 97 Room Air 03/15/16 20:00 36.6 87 18 184/96 97 Room Air 03/15/16 20:00 Room Air 03/15/16 19:42 82 16 91 Room Air 03/15/16 16:20 36.7 76 18 172/75 92 Room Air 03/15/16 16:00 Room Air 03/15/16 14:45 78 16 95 Room Air 03/15/16 12:00 Room Air 03/15/16 11:30 36.7 71 18 150/77 93 Room Air Physical Exam General Appearance: no apparent distress, + thin Eyes: normal inspection, PERRL, EOMI Neck: supple, no JVD, trachea midline Respiratory/Chest: no respiratory distress, no accessory muscle use, + decreased breath sounds Cardiovascular: regular rate, rhythm, no gallop, no murmur Abdomen: normal bowel sounds, non tender, soft Extremities: normal inspection, no pedal edema, no calf tenderness Neurologic/Psych: alert, normal mood/affect, oriented x 3 Skin: normal color, no jaundice, no rash Laboratory Results Last 24 Hours Test 03/15/16 14:20 03/16/16 04:59 03/16/16 09:45 Influenza Type A (RT-PCR) Neg for Influ A Influenza Type B (RT-PCR) Neg for Influ B White Blood Count 6.16 K/uL Red Blood Count 4.62 M/uL Hemoglobin 13.6 g/dL Hematocrit 41.0 % Mean Corpuscular Volume 88.7 fL Mean Corpuscular Hemoglobin 29.4 pg Mean Corpuscular Hemoglobin Concent 33.2 g/dl RDW Standard Deviation 41.6 fL RDW Coefficient of Variation 12.9 % Platelet Count 271 K/uL Mean Platelet Volume 10.6 fL Sodium Level 140 mmol/L Potassium Level 3.3 mmol/L Chloride Level 102 mmol/L Carbon Dioxide Level 32 mmol/L Anion Gap 6.0 mmol/L Blood Urea Nitrogen 21 mg/dl Creatinine 0.84 mg/dl Est Creatinine Clear Calc Drug Dose 42.8 ml/min Estimated GFR () 79.9 Estimated GFR (Non- 69.0 BUN/Creatinine Ratio 24.5 Random Glucose 81 mg/dl Calcium Level 8.9 mg/dl Phosphorus Level 3.1 mg/dl Magnesium Level 2.2 mg/dl Total Bilirubin 0.3 mg/dl Direct Bilirubin < 0.1 mg/dl Aspartate Amino Transf (AST/SGOT) 23 U/L Alanine Aminotransferase (ALT/SGPT) 45 U/L Alkaline Phosphatase 152 U/L Total Protein 6.4 gm/dl Albumin 2.7 gm/dl Assessment and Plan Patient is a 75 year old female currently seen for elevated LFTs which is resolving. She reports having elevated LFTs for years, and going to have appt w her local Youth Accommodation Support Worker at [place], [place] in March. She is currently being admitted for SOB, cough workup - abnormal finding of CT chest ? pneumonia vs pulmonary edema vs nodule on RUL area. She does have unexpected weight loss of about 30 lbs within last year that's concerning - so far etiology unknown. Differential diagnoses for LFT elevation include: viral hepatitis, acute hepatitis (labs pending), med side effect (Zpack), congestive hepatopathy. Unsure what serologies she has had at [place] for the elevated LFT workup in the past. If persist, and if haven't been performed previously would recommend obtaining serologies for Parvo, CMV, EBV, HSV; alpha 1 antitrypsin, celiac panel , ceruloplasmin, EUSEBIA, AMA, Anti smooth antibody, SPEP. These labs along w possible liver biopsy could be performed in outpt setting by her local Youth Accommodation Support Worker if still indicated after her discharge. LFTs are improving, still benign abd exam. OK for DC from GI standpoint to f/u w her local Youth Accommodation Support Worker at [place]. I have seen , examined and agree with the plan as outlined by STEPHANI as above. -exam reveals soft abd
[2016-03-16 11:52] LABS: AFP TUMOR MARKER SERUM 1.8 NG/ML (<6.1)
--- NOTE | 2016-03-16 13:00 | Clinical Documentation Query ---
CLINICAL DOCUMENTATION QUERY Dr. THOMAS, In your clinical opinion is this patient being managed for: ( ) Acute on chronic combined systolic and diastolic CHF ( ) Other explanation of clinical findings (Please Explain) ( ) Unable to determine (Please Define) ( ) Need to Discuss ( ) Not Agree The medical record reflects the following clinical findings, treatment, and risk factors. Clinical Indicators:75 yo female presenting with constant dyspnea. Reportedly with respiratory rate of 38 when EMS arrived. BNP 8757 and CXR with Progression of the interstitial thickening consistent with mild pulmonary edema. ECHO showed EF 35-40% with grade I diastolic dysfuction. Treatment: IV lasix, O2 support, tele, ECHO, cardiology consult, cozaar, aldactone, coreg, imdur Risk Factors: HTN, CAD, age Please clarify and document your clinical opinion in the progress notes and discharge summary. Terms such as "probable", "suspected", "likely", "questionable", "possible", or "still to be ruled out" are acceptable. IF IN AGREEMENT, YOU MUST DOCUMENT ABOVE DIAGNOSTIC STATEMENT IN DAILY PROGRESS NOTES AND DISCHARGE SUMMARY. This document is not part of the patient's record. Thank You, Nasrin Payne, [place] [phone]
--- NOTE | 2016-03-16 13:47 | Progress Note ---
Medicine Progress Note Date & Time of Visit: Mar 16, 2016 at 13:32. Subjective Pt was seen and examined Sitting in bed very comfortable with no distress Pt was that she feels fine she denies any chest pain, palpitation, dizziness Pt said that she has been walking around with no respiratory distress She is very anxious to go home. Objective Last 8 Hrs Date Time Temp Pulse Resp B/P Pulse Ox O2 Delivery O2 Flow Rate FiO2 03/16/16 12:00 Room Air 03/16/16 11:31 36.4 73 18 97/59 95 Room Air 03/16/16 08:00 Room Air 03/16/16 07:29 36.5 71 18 137/82 93 Room Air 03/16/16 07:25 66 16 90 Room Air Physical Exam: General- No acute distress Head- atraumatic Eyes- PERRL, EOMI ENT- oropharynx clear Neck- supple, no JVD Lungs- clear to auscultation and percussion Heart- regular rhythm; no murmur Abdomen- normal bowel sounds Extremities- no pretibial edema, no calf tenderness Neuro- alert, oriented x 3; PERRL, EOMI Skin- warm & dry Laboratory Results: Last 24 Hours Test 03/15/16 14:20 03/16/16 04:59 03/16/16 09:45 Influenza Type A (RT-PCR) Neg for Influ A Influenza Type B (RT-PCR) Neg for Influ B White Blood Count 6.16 K/uL Red Blood Count 4.62 M/uL Hemoglobin 13.6 g/dL Hematocrit 41.0 % Mean Corpuscular Volume 88.7 fL Mean Corpuscular Hemoglobin 29.4 pg Mean Corpuscular Hemoglobin Concent 33.2 g/dl RDW Standard Deviation 41.6 fL RDW Coefficient of Variation 12.9 % Platelet Count 271 K/uL Mean Platelet Volume 10.6 fL Sodium Level 140 mmol/L Potassium Level 3.3 mmol/L Chloride Level 102 mmol/L Carbon Dioxide Level 32 mmol/L Anion Gap 6.0 mmol/L Blood Urea Nitrogen 21 mg/dl Creatinine 0.84 mg/dl Est Creatinine Clear Calc Drug Dose 42.8 ml/min Estimated GFR () 79.9 Estimated GFR (Non- 69.0 BUN/Creatinine Ratio 24.5 Random Glucose 81 mg/dl Calcium Level 8.9 mg/dl Phosphorus Level 3.1 mg/dl Magnesium Level 2.2 mg/dl Total Bilirubin 0.3 mg/dl Direct Bilirubin < 0.1 mg/dl Aspartate Amino Transf (AST/SGOT) 23 U/L Alanine Aminotransferase (ALT/SGPT) 45 U/L Alkaline Phosphatase 152 U/L Total Protein 6.4 gm/dl Albumin 2.7 gm/dl Assessment & Plan SHORTNESS OF BREATH Possible related to acute on chronic heart failure (from the history it sounds like she has a NICM; she is on Coreg and Aldactone) vs COPD exacerbation vs pneumonia, or ACS. -Negative for influenza -Pulm was consulted and is awaiting outpatient workup from monotyper for plan (recent PFTs and other studies, was placed on Symbicort) -less likely a COPD exacerbation as she is improved quickly and without any exposure to steroids -Cards consulted and recommended to add lasix one dose weekly. no further diuretics are needed, compensated--awaiting records to compare TTE results to old ones-cardiomyopathy is the likely cause of the troponin increase. Pt is also high risk for any anticoagulation as she has been hospitalized for bleeding three times in the past. As there was some discussion of needing a pacemaker in the past, will keep her on telemetry for now while awaiting records. -CTA negative for PE, shows possible consolidation -Empirically treat with Rocephin and Doxycycline for possible pneumonia - will discharge on doxy to complete 7 days course -Advised pt to Follow up with PCP and specialist in [place], [place] ELEVATED TROPONIN as above, likely due to strain from hypertensive urgency 2/2 noncompliance with meds yesterday in setting of known cardiomyopathy Asymptomatic ABDOMINAL PAIN/TRANSAMINITIS/WEIGHT LOSS -? cause -Check CT A/P -check Liver US -hepatitis panel pending -GI consult placed -repeat LFTs in AM have normalized -multiple labs are pending. -Ok to discharge from GI standpoint. Continue following with her GI in [place] HYPERTENSIVE URGENCY -SBP >200, CT head negative - improved to the 180s after morning meds -? cause stress, infection, noncompliance -Continue Spirolactone, Imdur, BB -Losartan 25mg daily added - Monitor BMP LUNG NODULE -incidental finding of CT chest -is current smoker with history of recent weight loss, decreased appetite -Pulmonology consult placed and plan as above -will need repeat CT chest as outpatient in 6 to 8 weeks AAA -4cm intrarenal AAA -US reveals aneurysm with clot -patient is seen by outpatient vascular surgeon q 6 months, [address] Stevenson. -Jamir consulted, and recommends follow-up as outpatient CAD -continue ASA, BB, Imdur -hold Statin for elevated LFTs -monitor in tele PVD -s/p stent -continue Aspirin HLD -hold statin for elevated LFTs H/O CVA -continue ASA TOBACCO ABUSE -Cessation counseling given DVT PROPHYLAXIS: Heparin CODE STATUS: FULL CODE Disposition Will discharge home today. Consultants: Pulm, Cards, GI, Vascular Surg Current Inpatient Medications: Current Inpatient Medications Medications (Trade) Dose Ordered Sig/Felicita Route Start Time Stop Time Status Last Admin Dose Admin Ioversol (Optiray 320) 111 ml UD PRN IV 03/14/16 09:45 03/18/16 09:44 Heparin Sodium (Porcine) (Heparin Sq 5000 Unit/0.5ml) 5,000 unit Q8 SQ 03/14/16 22:00 04/13/16 21:59 03/16/16 05:05 5,000 UNIT Al Hydrox/Mg Hydrox/Simethicone (Maalox Max Susp) 15 ml Q4H PRN PO 03/14/16 12:45 04/13/16 12:44 Magnesium Hydroxide (Milk Of Magnesia Susp) 30 ml Q12H PRN PO 03/14/16 12:45 04/13/16 12:44 Ondansetron HCl (Zofran Inj) 4 mg Q6H PRN IV 03/14/16 12:45 04/13/16 12:44 Nitroglycerin (Nitrostat Tab) 0.4 mg UD PRN SL 03/14/16 12:45 04/13/16 12:44 Polyethylene (Miralax Powder Packet) 17 gm DAILY PRN PO 03/14/16 14:00 04/13/16 13:59 Aspirin (Ecotrin Tab) 81 mg DAILY PO 03/15/16 09:00 04/14/16 08:59 03/16/16 08:12 81 MG Budesonide/ Formoterol Fumarate (Symbicort 160/ 4.5 Inh) 2 puffs BID INH 03/14/16 21:00 04/13/16 20:59 03/16/16 08:11 2 PUFFS Carvedilol (Coreg Tab) 12.5 mg BID PO 03/14/16 21:00 04/13/16 20:59 03/16/16 08:11 12.5 MG Cholecalciferol (Vitamin D Tab) 1,000 inter.unit DAILY PO 03/15/16 09:00 04/14/16 08:59 03/16/16 08:12 1,000 INTER.UNIT Isosorbide Mononitrate (Imdur Ext Rel Tab) 30 mg QAM PO 03/14/16 16:00 04/13/16 15:59 03/16/16 08:12 30 MG Nitroglycerin (Nitrostat Tab) 0.4 mg PRN UT 03/14/16 12:45 04/13/16 12:44 Pantoprazole Sodium (Protonix Tab) 40 mg DAILY PO 03/15/16 09:00 04/14/16 08:59 03/16/16 08:12 40 MG Spironolactone (Aldactone Tab) 25 mg DAILY PO 03/15/16 09:00 04/14/16 08:59 03/16/16 08:11 25 MG Doxycycline Hyclate 100 mg 100 mg BID PO 03/14/16 21:00 03/21/16 20:59 03/16/16 08:11 100 MG Ceftriaxone Sodium/Dextrose (Rocephin Inj/ Dextrose Add-[place] 50ML) 50 ml @ 100 mls/hr Q24H IV 03/14/16 16:00 03/21/16 15:59 03/15/16 17:46 100 MLS/HR Ipratropium [place] (Atrovent 0.02% 0.5MG/2.5ML Neb) 0.5 mg Q6R INH 03/14/16 15:00 04/13/16 14:59 03/16/16 07:25 0.5 MG Levalbuterol (Xopenex 1.25MG/ 0.5ML Neb) 1.25 mg Q6R INH 03/14/16 15:00 04/13/16 14:59 03/16/16 07:25 1.25 MG Hydralazine HCl (HydrALAZINE INJ) 10 mg Q8 PRN IV. 03/14/16 14:00 04/13/16 13:59 Fluticasone Propionate (Flonase Nasal [place]) 1 sprays DAILY NA 1/29/17 16:00 04/13/16 15:59 03/16/16 08:11 1 SPRAYS Lorazepam (Ativan Tab) 1 mg Q6H PRN PO 03/14/16 19:45 04/13/16 19:44 03/15/16 22:37 1 MG Enteral Nutritional Formula (Boost Plus [place]) 1 can BID17 PO 03/15/16 17:00 04/14/16 16:59 03/16/16 08:15 1 CAN Losartan Potassium (coZAAR TAB) 25 mg QAM PO 03/17/16 09:00 04/16/16 08:59
[2016-03-16] MEDS ORDERED: FURO-85 PO (13:53)
[2016-03-16] MEDS ORDERED: CZR25 PO (13:53)
[2016-03-16] MEDS ORDERED: DXY100 PO (13:53)
[2016-03-16] MEDS ORDERED: Boost Plus Vanilla PO (13:53)
--- NOTE | 2016-03-16 13:59 | Discharge Instructions ---
Discharge Instructions Admission Reason for Admission: Shortness of Breath Discharge Discharge Diagnosis / Problem: Hypertension, Lung Nodule, elevated liver enzymes, Tobacco abuse Discharge Goals Goal(s): Decrease discomfort, Improve function, Improve disease control Activity Recommendations Activity Limitations: resume your previous activity (as tolerated) . Instructions / Follow-Up Instructions / Follow-Up Please schedule a Follow up with your primary care provider Repeat CT chest in about 8 weeks Check BMP to check your kidney function due to losartan that was added. Follow up with all your specialists (cardiology, Gastro, Pulmonary and vascular) Complete the course of doxycycline Current Hospital Diet Patient's current hospital diet: AHA Diet (Heart Healthy) Discharge Diet Recommended Diet: AHA Diet (Heart Healthy) Pending Studies Studies pending at discharge: yes List of pending studies: serologies for Parvo, CMV, EBV, HSV; alpha 1 antitrypsin, celiac panel, ceruloplasmin, EUSEBIA, AMA, Anti smooth antibody, SPEP. Laboratory Results Hemoglobin A1c Test 03/14/16 08:50 Range/Units Estimated Average Glucose 128 mg/dl Hemoglobin A1c 6.1 H 4.5-5.6 % Lipid Panel Test 03/15/16 06:05 Range/Units Triglycerides Level 180 H 0-150 mg/dl Cholesterol Level 195 0-200 mg/dl HDL Cholesterol 88 mg/dl Cholesterol/HDL Ratio 2.2 LDL Cholesterol, Calculated 71 mg/dl Medical Emergencies . Who to Call and When: Medical Emergencies: If at any time you feel your situation is an emergency, please call 911 immediately. . Non-Emergent Contact Non-Emergency issues call your: Primary Care Provider Call Non-Emergent contact if: you have any medication questions . . "Provider Documentation" section prepared by Babatunde Dasilva. VTE Core Measure Inpt VTE Proph given/why not?: Unfractionated heparin SQ
[2016-03-17] MEDS ORDERED: LOSARTAN POTASSIUM 25 MG TAB PO SCH (09:00)
[2016-03-17 15:06] LABS: ALBUMIN 2.8 G/DL (3.8-4.8); TOTAL PROTEIN 5.8 G/DL (6.2-8.3)
--- NOTE | 2016-03-17 18:26 | Discharge Summary ---
Discharge Summary Admission Date: Mar 14, 2016 at 13:54 Discharge Date: Mar 16, 2016 Discharge Disposition: Home Principal Diagnosis: Shortness of Breath Secondary Diagnoses/Problems: Pneumonia Elevated Troponin Transaminitis Lung Nodule Aneurysm Abdominal Aorta Procedures: CHEST CTA for PULMONARY ARTERIES CT DOSE: 757.31 mGy.cm HISTORY: Atypical chest pain. Short of breath. TECHNIQUE: Multiaxial CT images of the chest were performed following the intravenous administration of contrast to evaluate the pulmonary arteries. Maximal intensity projection images were also obtained. COMPARISON STUDY: Chest and abdominal series 03/14/2016. FINDINGS: There is a partially visualized 4 cm infrarenal abdominal aortic aneurysm. No evidence for dissection within the thoracic aorta. Concentric hypertrophy of the left ventricle with mild cardiomegaly. There are trace bilateral pleural effusions. Retrograde flow of contrast into the hepatic veins. Mild fullness within the right left renal collecting system without bertha hydronephrosis. Cholecystectomy. The visualized liver, spleen, and adrenal glands are unremarkable. No hilar lymphadenopathy. A single enlarged right peritracheal lymph node measuring 1.4 cm. Mild diffuse body wall edema. Trace mucoid material within the mainstem bronchus. No pneumothorax. Mild emphysema. Interlobular septal thickening and peribronchial thickening. This favors mild interstitial pulmonary edema. Faint groundglass densities at the lung bases. Focal consolidation seen within the right upper lobe posteriorly which measures 2 cm. There is also a focal nodular component medial to this surrounding a pulmonary artery. This measures 1.5 x 0.9 cm seen on image 92. Small subpleural nodule along the right major fissure. There is a 1 cm irregular density within the right upper lobe anteriorly on image 105. Small focal area of consolidation within the lingula posteriorly abutting the major fissure on image 70. No evidence for pulmonary embolus. IMPRESSION: 1. No evidence for pulmonary embolus. 2. Diffuse interstitial thickening, mild cardiomegaly, and trace bilateral pleural effusions. This is consistent with mild interstitial pulmonary edema. 3. A 2 cm focal airspace opacity within the right upper lobe. Medial to this airspace opacity there is a 1.5 x 0.9 cm nodular area of thickening which surrounds a patent pulmonary artery. These are nonspecific but may represent a focal pneumonia or component of the pulmonary edema. However, one to [address] follow is recommended to exclude the possibility of a pulmonary neoplasm. 4. Additional groundglass densities at the lung bases favor component of the pulmonary edema. 5. Partially visualized 4 cm infrarenal abdominal aortic aneurysm. 6. A 1 cm irregular density within the right lung apex anteriorly. This may represent scarring. However, this also bears watching on future examinations. 7. Additional findings described above.. Electronically signed by: Rodney Rankin M.D. 03/14/2016 11:45 AM ABDOMEN AND PELVIS CT WITHOUT CONTRAST CT DOSE: 228.63 mGy.cm HISTORY: Pain abdominal pain , wt loss TECHNIQUE: Multiaxial CT images of the abdomen and pelvis were performed without contrast. COMPARISON STUDY: None. FINDINGS: Mild bibasilar atelectasis. Trace pleural fluid both lung bases. Aneurysmal dilatation of abdominal aorta with partial intraluminal thrombus formation. Maximum dimension 3.8 cm. Small chronic calcified dissection inferior aspect abdominal aorta. Unremarkable liver spleen and pancreas. Multiple bilateral renal calcifications as well as vascular calcifications. Nonobstructive bowel pattern. Normal appendix. No free fluid within the cul-de-sac cul-de-sac. Bladder is midline. Considerable atelectatic change abdominal arterial vasculature. Degenerative changes lumbar spine. Increased trabecular pattern right hemipelvis and right iliac wing raising the possibility of patchy joint change. No evidence for an acute compression deformity. IMPRESSION: 1. 3.8 cm partially calcified aneurysm of abdominal aorta. 2. Nonobstructive bowel pattern. 3. Bilateral nonobstructing renal calcifications. 4. Small bibasilar parenchymal infiltrative and/or atelectatic changes with minimal basilar pleural effusion Electronically signed by: Jesus Palencia M.D. [~ rep ct add3]] Ultrasound abdominal aorta AORTIC ANEURYSM RETRO [place] CLINICAL HISTORY: 4 CM INFRARENAL AAA aneurysm TECHNIQUE: Ultrasound COMPARISON STUDY: CT abdomen and pelvis same date FINDINGS: 3.8 cm partially thrombosed aneurysm of the abdominal aorta. No evidence for dissection based on this exam. No abnormal perinephric fluid. IMPRESSION: 3.8 cm partially thrombosed aneurysm abdominal aorta. Similar appearances compared to the patient's prior CT study Electronically signed by: Jesus Palencia M.D. Limited abdominal ultrasound (LIVER) ABDOMEN LIMITED CLINICAL HISTORY: ELEVATED TRANSAMINASES abnormal liver enzymes/pancreatic enzymes TECHNIQUE: Ultrasound COMPARISON STUDY: CT abdomen and pelvis of the same date FINDINGS: Poor visualization of the pancreas. Aneurysm the abdominal aorta previously noted. Liver is uniform. Prior cholecystectomy. No evidence renal hydronephrosis. IMPRESSION: Aneurysm of the abdominal aorta appears a noted. Poor visualization of the pancreas. Otherwise negative study status post cholecystectomy. Consultations: Pulm, Cards, GI, Vascular Surg Medication Reconciliation New Medications: Furosemide (Lasix) 20 Mg Tab 20 MG PO WK for 10 Days, TAB Doxycycline Hyclate (Doxycycline Hyclate) 100 Mg Cap 100 MG PO BID for 5 Days, #10 CAP Losartan Potassium (Losartan Potassium) 25 Mg Tab 25 MG PO QAM for 30 Days, #30 TAB [Boost Plus Vanilla] () 1 CAN LIQD 1 CAN PO BID17 for 30 Days Continued Medications: Aspirin (Aspirin Ec) 81 Mg Tab 81 MG PO DAILY Atorvastatin (Lipitor) 10 Mg Tab 10 MG PO DAILY, TAB Budesonide/Formoterol Fumarate (Symbicort 160/4.5 Inhaler ) Aero 2 PUFFS INH BID, INHALER Carvedilol (Coreg) 12.5 Mg Tab 12.5 MG PO BID, TAB Cholecalciferol (Vitamin D 1000 Unit) 1,000 Unit Cap 1000 INTER.UNIT PO DAILY, CAP Furosemide (Lasix) Unknown Strength Tab Unknown Dose PO DAILY for 90 Days, TAB 1 Refill Isosorbide Mononitrate Ext Rel (Imdur Ext Rel) 30 Mg Ertab 30 MG PO QAM, TAB Nitroglycerin (Nitrostat) 0.4 Mg Tab 0.4 MG UT PRN, BTL Pantoprazole (Protonix) 40 Mg Tab 40 MG PO DAILY, #30 TAB Spironolactone (Aldactone) 25 Mg Tab 25 MG PO DAILY, TAB Admission Information HPI (per Admitting provider): Patient seen and examined. 75 year old female with PMHx of HTN, CAD, PVP, H/O CVA and tobacco abuse presents to the ED complaining of SOB since last night. Patient reports she has had a URI for about 2 weeks, she has been treated with a Zpak, prednisone and nebulizer and thought she was getting better but last night she felt SOB even at rest. She reports associated cough with thick white sputum production. She reports PND and states she has been sleeping with an extra pillow. She also states she has had some diarrhea about 2 episodes per day. She states she has had urinary frequency for about a year despite stopping her Lasix. She denies fever, chills, chest pain, palpitations, nausea, vomiting , dysuria, calf pain and edema. She reports she hasn't been eating well for the past year. She reports she has had weight loss over the past year. She reports she is still smoking at least a half a pack a day. In the ED patient was HTN with SBP >200, she had not taken her morning meds, she required 4L oxygen, CT chest was negative for PE, but showed possible PNA and lung nodule. LFTs are elevated. Troponin is mildly elevated. BNP is 8K. She received Duonebs and Ativan. She is resting comfortably. She will be admitted for further workup and treatment. Physical Exam (per Admitting): General Appearance: + pertinent finding (WD/WN 75 year old female lying in bed in NAD with family at bedside ) Head: normocephalic, atraumatic Eyes: PERRL, EOMI, sclerae normal ENT: hearing grossly normal, pharynx normal Neck: supple, no JVD Respiratory/Chest: chest non-tender, no respiratory distress, no accessory muscle use, + decreased breath sounds Cardiovascular: regular rate, rhythm, no edema, no gallop, no JVD, no murmur , normal peripheral pulses Abdomen/GI: normal bowel sounds, soft, + tenderness (LLQ), + mass (small flat hard area approximately 2 cm in size in LLQ, painful to palpation ) Back: normal inspection, no muscle spasm Extremities/Musculoskelatal: no calf tenderness, normal capillary refill, no pedal edema Neurologic/Psych: alert, oriented x 3, + pertinent finding (no motor or sensory deficits noted on gross exam ) Skin: normal color, warm/dry, no rash Lymphatic: no adenopathy Hospital Course SHORTNESS OF BREATH Possible related to acute on chronic heart failure (from the history it sounds like she has a NICM; she is on Coreg and Aldactone) vs COPD exacerbation vs pneumonia, or ACS. -Negative for influenza -Pulm was consulted and is awaiting outpatient workup from men's furnishings salesperson for plan (recent PFTs and other studies, was placed on Symbicort) -less likely a COPD exacerbation as she is improved quickly and without any exposure to steroids -Cards consulted and recommended to add lasix one dose weekly. no further diuretics are needed, compensated--awaiting records to compare TTE results to old ones-cardiomyopathy is the likely cause of the troponin increase. Pt is also high risk for any anticoagulation as she has been hospitalized for bleeding three times in the past. As there was some discussion of needing a pacemaker in the past, will keep her on telemetry for now while awaiting records. -CTA negative for PE, shows possible consolidation -Empirically treat with Rocephin and Doxycycline for possible pneumonia - will discharge on doxy to complete 7 days course -Advised pt to Follow up with PCP and specialist in [place], [place] ELEVATED TROPONIN as above, likely due to strain from hypertensive urgency 2/2 noncompliance with meds yesterday in setting of known cardiomyopathy Asymptomatic ABDOMINAL PAIN/TRANSAMINITIS/WEIGHT LOSS -? cause -Check CT A/P -check Liver US -hepatitis panel pending -GI consult placed -repeat LFTs in AM have normalized -multiple labs are pending. -Ok to discharge from GI standpoint. Continue following with her GI in [place] HYPERTENSIVE URGENCY -SBP >200, CT head negative - improved to the 180s after morning meds -? cause stress, infection, noncompliance -Continue Spirolactone, Imdur, BB -Losartan 25mg daily added - Monitor BMP LUNG NODULE -incidental finding of CT chest -is current smoker with history of recent weight loss, decreased appetite -Pulmonology consult placed and plan as above -will need repeat CT chest as outpatient in 6 to 8 weeks AAA -4cm intrarenal AAA -US reveals aneurysm with clot -patient is seen by outpatient vascular surgeon q 6 months, [address] Stevenson. -Jamir consulted, and recommends follow-up as outpatient CAD -continue ASA, BB, Imdur -hold Statin for elevated LFTs -monitor in tele PVD -s/p stent -continue Aspirin HLD -hold statin for elevated LFTs H/O CVA -continue ASA TOBACCO ABUSE -Cessation counseling given DVT PROPHYLAXIS: Heparin CODE STATUS: FULL CODE Disposition Will discharge home today. Total time spent on discharge = 35 minutes This includes examination of the patient, discharge planning, medication reconciliation, and communication with other providers. Discharge Instructions Discharge Instructions Admission Reason for Admission: Shortness of Breath Discharge Discharge Diagnosis / Problem: Hypertension, Lung Nodule, elevated liver enzymes, Tobacco abuse Discharge Goals Goal(s): Decrease discomfort, Improve function, Improve disease control Activity Recommendations Activity Limitations: resume your previous activity (as tolerated) . Instructions / Follow-Up Instructions / Follow-Up Please schedule a Follow up with your primary care provider Repeat CT chest in about 8 weeks Check BMP to check your kidney function due to losartan that was added. Follow up with all your specialists (cardiology, Gastro, Pulmonary and vascular) Complete the course of doxycycline Current Hospital Diet Patient's current hospital diet: AHA Diet (Heart Healthy) Discharge Diet Recommended Diet: AHA Diet (Heart Healthy) Pending Studies Studies pending at discharge: yes List of pending studies: serologies for Parvo, CMV, EBV, HSV; alpha 1 antitrypsin, celiac panel, ceruloplasmin, EUSEBIA, AMA, Anti smooth antibody, SPEP. Laboratory Results Hemoglobin A1c Test 03/14/16 08:50 Range/Units Estimated Average Glucose 128 mg/dl Hemoglobin A1c 6.1 H 4.5-5.6 % Lipid Panel Test 03/15/16 06:05 Range/Units Triglycerides Level 180 H 0-150 mg/dl Cholesterol Level 195 0-200 mg/dl HDL Cholesterol 88 mg/dl Cholesterol/HDL Ratio 2.2 LDL Cholesterol, Calculated 71 mg/dl Medical Emergencies . Who to Call and When: Medical Emergencies: If at any time you feel your situation is an emergency, please call 911 immediately. . Non-Emergent Contact Non-Emergency issues call your: Primary Care Provider Call Non-Emergent contact if: you have any medication questions . . "Provider Documentation" section prepared by Babatunde Dasilva. VTE Core Measure Inpt VTE Proph given/why not?: Unfractionated heparin SQ Additional Copies To Neftaly Cain M.D.
== END 2016-03-16 14:45 | disposition home or self-care (01) | DRG 195 ==
LOC: ENRESERVTM → ENRESERVDT → EDBD 08:13 → C.EDB 08:15 → C.2T 13:54
PROVIDERS: ADMIT Hospitalist; ATTEND Internal Medicine
DX: J18.9 Pneumonia, unspecified organism (principal); I44.7 Left bundle-branch block, unspecified; R79.89 Other specified abnormal findings of blood chemistry; R10.9 Unspecified abdominal pain; R63.4 Abnormal weight loss; D72.829 Elevated white blood cell count, unspecified; I10 Essential (primary) hypertension; R91.1 Solitary pulmonary nodule; R05 Cough; R91.8 Other nonspecific abnormal finding of lung field; J44.9 Chronic obstructive pulmonary disease, unspecified; I71.4 Abdominal aortic aneurysm, without rupture; I73.9 Peripheral vascular disease, unspecified; I25.10 Atherosclerotic heart disease of native coronary artery without angina pectoris; E78.5 Hyperlipidemia, unspecified; Z79.82 Long term (current) use of aspirin; Z79.899 Other long term (current) drug therapy; Z88.5 Allergy status to narcotic agent; Z88.6 Allergy status to analgesic agent; Z88.8 Allergy status to other drugs, medicaments and biological substances; Z86.73 Personal history of transient ischemic attack (TIA), and cerebral infarction without residual deficits; Z82.49 Family history of ischemic heart disease and other diseases of the circulatory system; F17.200 Nicotine dependence, unspecified, uncomplicated